=== PATIENT | female | born 1935 | race Caucasian/White ===

== ENCOUNTER 2018-08-23 09:36 | Observation (INO) | payer MEDICARE ==
[2018-08-23] MEDS ORDERED: Zofran 4 MG/2 ML VIAL IV PRN (12:39)
[2018-08-23] MEDS ORDERED: Sodium Chloride 0.9% 1000 ML 1,000 ML IV STA (12:39)
--- NOTE | 2018-08-23 12:43 | PCM.HP ---
History of Present Illness - Chief Complaint Chief Complaint: AMBER LEG PAIN, nausea, vomiting, abdominal pain History of Present Illness: is a 83 year old female.started having low back pain radiation to both lower legs started 3 days ago for which she went to ER and was diagnosed with sciatica and lumbosacral osteoarthritis. She was seen in my office as her pain was not getting better. She was started on anti inflammatory which also did not relieve her pain and gave her abdominal pain associated with nausea and vomiting that she could not keep anything down so she is admitted for further evaluation as observation. - Review of Systems Constitutional: No Fever, No Chills Eyes: No Symptoms Ears, Nose, & Throat: No Symptoms Respiratory: No Cough, No Short Of Breath Cardiac: No Chest Pain, No Edema, No Syncope Abdominal/Gastrointestinal: Abdominal Pain, Nausea, Vomiting, No Diarrhea Genitourinary Symptoms: No Dysuria Musculoskeletal: Back Pain, No Neck Pain Skin: No Rash Neurological: No Dizziness, No Focal Weakness, No Sensory Changes Psychological: No Symptoms Endocrine: No Symptoms Hematologic/Lymphatic: No Symptoms Immunological/Allergic: No Symptoms Medications & Allergies Home Medications: Home Medication List Amlodipine Besylate 10 mg [Norvasc 10 MG] 10 mg PO DAILY 08/23/18 [History Confirmed 08/23/18] Aspirin 2 tab PO DAILY 08/23/18 [History Confirmed 08/23/18] Atorvastatin Calcium 80 mg PO DAILY 08/23/18 [History Confirmed 08/23/18] Celecoxib 100 mg [celeBREX 100 MG] 100 mg PO BID 08/23/18 [History Confirmed 08/23/18] Clopidogrel Bisulfate 75 mg [PLAVIX 75 MG Tablet] 75 mg PO DAILY 08/23/18 [History Confirmed 08/23/18] Ezetimibe/Simvastatin [Ezetimibe-Simvastatin 10-10 mg] 1 each PO DAILY 08/23/18 [History Confirmed 08/23/18] Levothyroxine Sodium 75 Mcg [Synthroid 75 Mcg] 75 mcg PO DAILY 08/23/18 [ History Confirmed 08/23/18] Lisinopril [Zestril] 40 mg PO HS 08/23/18 [History Confirmed 08/23/18] Lorazepam 1 mg [Ativan 1 MG] 1 mg PO HS 08/23/18 [History Confirmed ] Metformin HCl 500 mg [Glucophage 500 MG] 500 mg PO DAILY 08/23/18 [ History Confirmed 08/23/18] Pantoprazole Sodium [Protonix] 40 mg PO DAILY 08/23/18 [History Confirmed ] Allergies/Adverse Reactions: Allergies Allergy/AdvReac Type Severity Reaction Status Date / Time Sulfa (Sulfonamide Allergy Verified 08/23/18 10:45 Antibiotics) - Past Medical History Past Medical History: Yes Neurological History: Peripheral Neuropathy, TIA ENT History: No Pertinent History Cardiac History: Congestive Heart Failure, Coronary Artery Disease, High Cholesterol, Hypertension Respiratory History: CHF, COPD, Sleep Apnea Endocrine Medical History: Diabetes Type II, Hypothyroidism Musculoskelatal History: Arthritis, Osteoarthritis GI Medical History: Gallbladder Disease, Hemorrhoids History: No Pertinent History Pyscho-Social History: No Pertinent History Reproductive Disorders: No Pertinent History - Female History Are you now?: No - Past Surgical History Past Surgical History: Yes Neuro Surgical History: No Pertinent History Cardiac History: Cardiac Catheterization, Cardiac Stent Respiratory Surgery: No Pertinent History GI Surgical History: Cholecystectomy Genitourinary Surgical Hx: No Pertinent History Musculskeletal Surgical Hx: Other Female Surgical History: Hysterectomy Other Surgical History: rotator cuff surgery; spinal surgery - Social History Smoking Status: Never smoker Exposure to second hand smoke: No Alcohol: None Drug Use: none - Physical Exam General Appearance: no apparent distress, alert Neurologic Exam: alert, oriented x 3, cooperative, normal mood/affect, nml cerebellar function, nml station & gait, sensation nml, No motor deficits Eye Exam: PERRL/EOMI, eyes nml inspection Ears, Nose, Throat Exam: normal ENT inspection, TMs normal, pharynx normal, moist mucous membranes Neck Exam: normal inspection, non-tender, supple, full range of motion Respiratory Exam: normal breath sounds, lungs clear, No respiratory distress Cardiovascular Exam: regular rate/rhythm, normal heart sounds, normal peripheral pulses Gastrointestinal/Abdomen Exam: soft, normal bowel sounds, No tenderness, No mass Back Exam: normal inspection, normal range of motion, No CVA tenderness, No vertebral tenderness Extremity Exam: normal inspection, normal range of motion, pelvis stable Skin Exam: normal color, warm, dry, No rash Lymphatic Exam: No adenopathy Assessment/Plan (1) Abdominal pain Current Visit: Yes Status: Acute Qualifiers: Abdominal location: generalized Qualified Code(s): R10.84 - Generalized abdominal pain Code(s): R10.9 - UNSPECIFIED ABDOMINAL PAIN (2) Bilateral leg pain Current Visit: Yes Status: Acute Code(s): M79.604 - PAIN IN RIGHT LEG; M79.605 - PAIN IN LEFT LEG
[2018-08-23 13:00] LABS: BASOPHIL % 0.5 % (0.0-0.4); Basophil (Absolute #) 0.03 (0-0.4); Eosinophil % 0.3 % (0.00-5.0); Eosinophil (Absolute #) 0.02 (0-0.5); Granulocyte Absolute (ANC) 3.97 (1.4-6.9); Granulocytes % 66.3 % (36.0-66.0); Hematocrit 37.2 % (35-47); Hemoglobin 12.3 gm/dl (12.0-16.0); Mean Corpuscular Hgb Concent. 33.1 g/dl (32-36); Mean Platelet Volume 9.4 fl (6-9.5); Monocyte (Absolute #) 0.77 (0.0-1.3); Monocytes % 12.9 % (0.0-12.0); Platelet Count 188 K/mm3 (150-450); Red Blood Count 4.09 M/mm3 (4.1-5.4); Red Cell Distribution Width 13.3 % (11.5-14.0)
[2018-08-23 13:02] LABS: A-aADO2 47; ABG HEMOGLOBIN 12.1; ABG POTASSIUM 3.6 (3.5-5.1); ARTERIAL BLD GAS O2 SATURATION 93.7 % (95-100); ARTERIAL BLOOD GAS BASE EXCESS 2.7 (-2.0-2.0); ARTERIAL BLOOD GAS FIO2 21 %; ARTERIAL BLOOD GAS PCO2 35 mmHg (35-45); ARTERIAL BLOOD GAS PO2 59 mmHg (75-100); ARTERIAL BLOOD GAS pH 7.48 (7.35-7.45); CARBOXYHEMOGLOBIN 2.4 % THgb (0.0-6.9); HCO3- 26.1 (22-28); HGB O2 SAT 90.3 g/dF (94-100); Methhemoglobin 1.2 % (1.4-1.5); paO2 pAO1 0.56
[2018-08-23 13:03] LABS: ABG SITE RIGHT RADIAL; ALLEN TEST OK? YES
[2018-08-23 13:14] LABS: ALKALINE PHOSPHATASE 64 U/L (38-126); AMYLASE 75 U/L (30-110); ANION GAP 13.1 MEQ/L (5-15); BLOOD UREA NITROGEN 20 mg/dL (7-17); CHLORIDE 101 mmol/L (98-107); Calcium 9.4 mg/dL (8.4-10.2); Carbon Dioxide 27 mmol/L (22-30); Creatinine 1 0.87 mg/dL (0.52-1.04); Glucose 135 mg/dL (74-106); Potassium 3.7 mmol/L (3.5-5.1); SGOT/AST 38 U/L (14-36); SGPT/ALT 23 U/L (0-35); SODIUM 138 mmol/L (137-145); Total Protein 6.7 g/dL (6.3-8.2)
[2018-08-23] MEDS: Sodium Chloride 0.9% 1000 ML 1,000 ML IV SCH ×2 (13:45→23:39)
[2018-08-23] MEDS: MORPHINE SULFATE 2 MG INJ IV PRN ×2 (14:26→21:31)
[2018-08-23] MEDS: celeBREX 100 MG PO SCH (21:32)
[2018-08-23] MEDS ORDERED: NON-FORMULARY ITEM (Lisinopril [Zestril] 40 MG) PO SCH (22:00)
[2018-08-23] MEDS ORDERED: Ativan 1 MG PO SCH (22:00)
[2018-08-23] MEDS ORDERED: Zestril 20 MG PO SCH (22:00)
[2018-08-24] MEDS ORDERED: Glucophage 500 MG PO SCH (08:00)
[2018-08-24] MEDS: Sodium Chloride 0.9% 1000 ML 1,000 ML IV SCH (09:58)
[2018-08-24] MEDS: celeBREX 100 MG PO SCH (09:59)
[2018-08-24] MEDS ORDERED: EZETIMIBE PO SCH (10:00)
[2018-08-24] MEDS ORDERED: PLAVIX 75 MG Tablet PO SCH (10:00)
[2018-08-24] MEDS ORDERED: NORVASC 5 MG PO SCH (10:00)
[2018-08-24] MEDS ORDERED: ASPIRIN PO SCH (10:00)
[2018-08-24] MEDS ORDERED: SYNTHROID 75 MCG PO SCH (10:00)
[2018-08-24] MEDS ORDERED: ECOTRIN 81 MG PO SCH (10:00)
[2018-08-24] MEDS ORDERED: ZOCOR 20MG PO SCH (10:00)
[2018-08-24] MEDS ORDERED: Protonix 40MG Tablet PO SCH (10:00)
[2018-08-24] MEDS ORDERED: NON-FORMULARY ITEM (Atorvastatin Calcium [Atorvastatin Calcium] 80 MG) PO SCH (10:00)
[2018-08-24] MEDS ORDERED: Zetia 10 MG PO SCH (10:00)
[2018-08-24] MEDS ORDERED: SIMVASTATIN PO SCH (10:00)
[2018-08-24] MEDS ORDERED: NON-FORMULARY ITEM (Amlodipine Besylate 10 Mg [Norvasc 10 Mg] 10 MG) PO SCH (10:00)
--- NOTE | 2018-08-24 12:20 | PCM.DS ---
Discharge Summary Date of Admission: 08/23/18 10:28 Admitting Physician: MARLENY TANG Primary Care Provider: MARLENY TANG Allergies Allergies Sulfa (Sulfonamide Antibiotics) Allergy (Verified 08/23/18 10:45) Hospital Summary - Hospital Course Hospital Course: Chief Complaint Diagnosis AMBER LEG PAIN, nausea, vomiting, abdominal pain Allergies Allergy/AdvReac Type Severity Reaction Status Date / Time Sulfa (Sulfonamide Allergy Verified 08/23/18 10:45 Antibiotics) Vital Signs (Last 24 hours) Temp Pulse Resp BP Pulse Ox 08/24/18 07:53 99.5 F 79 21 130/62 91 L 08/24/18 03:45 99.7 F 74 15 133/63 92 L 08/23/18 23:49 98.4 F 76 19 135/63 92 L 08/23/18 20:00 98.6 F 75 18 130/63 92 L 08/23/18 16:00 98.2 F 83 18 129/59 93 L Home Medications Medication Instructions Recorded Confirmed Last Taken Type Amlodipine Besylate 10 mg [Norvasc 10 mg PO DAILY 08/23/18 08/23/18 08/23/18 History 10 MG] Aspirin 2 tab PO DAILY 08/23/18 08/23/18 08/23/18 History Atorvastatin Calcium 80 mg PO DAILY 08/23/18 08/23/18 08/23/18 History Celecoxib 100 mg [celeBREX 100 100 mg PO BID 08/23/18 08/23/18 08/23/18 History MG] Clopidogrel Bisulfate 75 mg 75 mg PO DAILY 08/23/18 08/23/18 08/23/18 History [PLAVIX 75 MG Tablet] Ezetimibe/Simvastatin 1 each PO DAILY 08/23/18 08/23/18 08/23/18 History [Ezetimibe-Simvastatin 10-10 mg] Levothyroxine Sodium 75 Mcg 75 mcg PO DAILY 08/23/18 08/23/18 08/23/18 History [Synthroid 75 Mcg] Lisinopril [Zestril] 40 mg PO HS 08/23/18 08/23/18 08/22/18 History Lorazepam 1 mg [Ativan 1 MG] 1 mg PO HS 08/23/18 08/23/18 08/22/18 History Metformin HCl 500 mg 500 mg PO DAILY 08/23/18 08/23/18 08/23/18 History [Glucophage 500 MG] Pantoprazole Sodium [Protonix] 40 mg PO DAILY 08/23/18 08/23/18 08/23/18 History Current Medications Generic Name Dose Route Start Last Admin Trade Name Domingoq PRN Reason Stop Dose Admin Amlodipine Besylate 10 mg 08/24/18 10:00 08/24/18 09:59 Norvasc 5 Mg PO 09/23/18 09:59 10 mg DAILY AARON Administration Aspirin 162 mg 08/24/18 10:00 08/24/18 09:59 Ecotrin 81 Mg PO 09/23/18 09:59 162 mg DAILY AARON Administration Celecoxib 100 mg 08/23/18 22:00 08/24/18 09:59 Celebrex 100 Mg PO 09/22/18 21:59 100 mg BID AARON Administration Clopidogrel Bisulfate 75 mg 08/24/18 10:00 08/24/18 09:59 Plavix 75 Mg Tablet PO 09/23/18 09:59 75 mg DAILY AARON Administration Ezetimibe 10 mg 08/24/18 10:00 08/24/18 09:58 Zetia 10 Mg PO 09/23/18 09:59 10 mg DAILY AARON Administration Sodium Chloride 1,000 mls @ 100 mls/hr 08/23/18 12:45 08/24/18 09:58 Sodium Chloride 0.9% 1000 Ml IV 09/22/18 12:44 100 mls/hr .Q10H AARON Administration Levothyroxine Sodium 75 mcg 08/24/18 10:00 08/24/18 09:59 Synthroid 75 Mcg PO 09/23/18 09:59 75 mcg DAILY AARON Administration Lisinopril 40 mg 08/23/18 22:00 08/23/18 21:32 Zestril 20 Mg PO 09/22/18 21:59 40 mg HS AARON Administration Lorazepam 1 mg 08/23/18 22:00 08/23/18 21:32 Ativan 1 Mg PO 09/22/18 21:59 1 mg HS AARON Administration Metformin HCl 500 mg 08/24/18 08:00 08/24/18 09:59 Glucophage 500 Mg PO 09/23/18 07:59 500 mg BREAKFAST AARON Administration Morphine Sulfate 2 mg 08/23/18 12:41 08/23/18 21:31 Morphine Sulfate 2 Mg Inj IV 08/28/18 12:40 2 mg Q4H PRN PRN Administration PAIN Ondansetron HCl 4 mg 08/23/18 12:39 Zofran 4 Mg/2 Ml Vial IV 09/22/18 12:38 Q4H PRN PRN NAUSEA/VOMITING Pantoprazole Sodium 40 mg 08/24/18 10:00 08/24/18 09:59 Protonix 40mg Tablet PO 09/23/18 09:59 40 mg DAILY AARON Administration Simvastatin 80 mg 08/24/18 10:00 08/24/18 09:59 Zocor 20mg PO 09/23/18 09:59 80 mg DAILY AARON Administration Discontinued Medications Generic Name Dose Route Start Last Admin Trade Name Freq PRN Reason Stop Dose Admin Sodium Chloride 1,000 mls @ 999 mls/hr 08/23/18 12:39 08/23/18 12:46 Sodium Chloride 0.9% 1000 Ml IV 08/23/18 13:39 999 mls/hr .Q1H1M STA Administration Intake & Output (Last 24 hours) 08/22/18 08/23/18 08/24/18 08/25/18 11:59 11:59 11:59 11:59 Intake Total 3701 Balance 3701 Weight 75.3 kg Laboratory Results (Last 24 hours) 08/23/18 08/23/18 08/23/18 12:55 12:55 12:50 WBC RBC Hgb Hct MCV MCH MCHC RDW Plt Count MPV Gran % Eos # (Auto) Absolute Lymphs (auto) Absolute Monos (auto) Lymphocytes % Monocytes % Eosinophils % Basophils % Absolute Granulocytes Basophils # Puncture Site RIGHT RADIAL pCO2 35 pO2 59 L Base Excess 2.7 H O2 Saturation 90.3 L ABG pH 7.48 H ABG HCO3 26.1 ABG O2 Sat (Measured) 93.7 L Yefri Test YES A-a Gradient 47 a/A Ratio 0.56 Hemoglobin 12.1 Carboxyhemoglobin 2.4 Methemoglobin 1.2 L Temperature 37.0 POC O2 Flow Rate 21 Sodium Potassium 3.6 Chloride Carbon Dioxide Anion Gap BUN Creatinine Estimated GFR Glucose Lactic Acid 1.5 Calcium Total Bilirubin AST ALT Alkaline Phosphatase Troponin I < 0.012 Serum Total Protein Albumin Amylase 08/23/18 08/23/18 12:50 12:50 WBC 6.0 RBC 4.09 L Hgb 12.3 Hct 37.2 MCV 91.0 MCH 30.0 MCHC 33.1 RDW 13.3 Plt Count 188 MPV 9.4 Gran % 66.3 H Eos # (Auto) 0.02 Absolute Lymphs (auto) 1.20 Absolute Monos (auto) 0.77 Lymphocytes % 20.0 L Monocytes % 12.9 H Eosinophils % 0.3 Basophils % 0.5 Absolute Granulocytes 3.97 Basophils # 0.03 Puncture Site pCO2 pO2 Base Excess O2 Saturation ABG pH ABG HCO3 ABG O2 Sat (Measured) Yefri Test A-a Gradient a/A Ratio Hemoglobin Carboxyhemoglobin Methemoglobin Temperature POC O2 Flow Rate Sodium 138 Potassium 3.7 Chloride 101 Carbon Dioxide 27 Anion Gap 13.1 BUN 20 H Creatinine 0.87 Estimated GFR > 60.0 Glucose 135 H Lactic Acid Calcium 9.4 Total Bilirubin 0.70 AST 38 H ALT 23 Alkaline Phosphatase 64 Troponin I Serum Total Protein 6.7 Albumin 4.0 Amylase 75 Orders (Last 24 hours) Category Date Time Status Up Ad Leny TOLERATED Activity 08/23/18 12:40 Active Code Status Order ROUTINE Care 08/23/18 12:40 Active ABG [ARTERIAL BLOOD GASES] Routine Lab 08/23/18 12:55 Completed AMYLASE Stat Lab 08/23/18 12:50 Completed CBC W DIFF Stat Lab 08/23/18 12:50 Completed CMP Stat Lab 08/23/18 12:50 Completed Lactic Acid Stat Lab 08/23/18 12:55 Completed TROPONIN Stat Lab 08/23/18 12:50 Completed Amlodipine Besylate 5 mg [Norvasc 5 mg] Med 08/24/18 10:00 Active 10 mg PO DAILY Aspirin EC 81 mg [Ecotrin 81 mg] Med 08/24/18 10:00 Active 162 mg PO DAILY Celecoxib 100 mg [celeBREX 100 MG] Med 08/23/18 22:00 Active 100 mg PO BID Clopidogrel Bisulfate 75 mg [PLAVIX 75 MG Tablet] Med 08/24/18 10:00 Active 75 mg PO DAILY Ezetimibe 10 mg [Zetia 10 MG] Med 08/24/18 10:00 Active 10 mg PO DAILY Levothyroxine Sodium 75 Mcg [Synthroid 75 Mcg] Med 08/24/18 10:00 Active 75 mcg PO DAILY Lisinopril 20 mg [Zestril 20 MG] Med 08/23/18 22:00 Active 40 mg PO HS Lorazepam 1 mg [Ativan 1 MG] Med 08/23/18 22:00 Active 1 mg PO HS Metformin HCl 500 mg [Glucophage 500 MG] Med 08/24/18 08:00 Active 500 mg PO BREAKFAST Morphine Sulfate 2 mg Inj Med 08/23/18 12:41 Active 2 mg IV Q4H PRN PRN NaCl 0.9% 1000 ml [Sodium Chloride 0.9% 1000 ML] 1,000 Med 08/23/18 12:45 Active ml IV 100 mls/hr NaCl 0.9% 1000 ml [Sodium Chloride 0.9% 1000 ML] 1,000 Med 08/23/18 12:39 Discontinued ml IV 999 mls/hr Ondansetron HCl 4 mg/2 ml [Zofran 4 MG/2 ML VIAL] Med 08/23/18 12:39 Active 4 mg IV Q4H PRN PRN PANTOPRAZOLE 40 mg Tablet [Protonix 40MG Tablet] Med 08/24/18 10:00 Active 40 mg PO DAILY Simvastatin 20Mg [Zocor 20Mg] Med 08/24/18 10:00 Active 80 mg PO DAILY PT Eval & Treat (MD Order) ROUTINE PT 08/24/18 09:04 Active BiPap/CPAP ROUTINE RT 08/23/18 20:02 Active - Vitals & Intake/Output Vital Signs: Vital Signs Temperature 99.5 F 08/24/18 07:53 Pulse Rate 79 08/24/18 07:53 Respiratory Rate 21 08/24/18 07:53 Blood Pressure 130/62 08/24/18 07:53 O2 Sat by Pulse Oximetry 91 L 08/24/18 07:53 Intake & Output: Intake & Output 1008/23/18 08/24/18 08/25/18 11:59 11:59 11:59 11:59 Intake Total 3701 Balance 3701 Weight 75.3 kg - Lab Result Diagrams: 08/23/18 12:50 08/23/18 12:50 Lab Results-Last 24 Hrs: Lab Results-Last 24 Hours 08/23/18 08/23/18 08/23/18 Range/Units 12:50 12:50 12:50 WBC 6.0 (4.0-10.5) K/mm3 RBC 4.09 L (4.1-5.4) M/mm3 Hgb 12.3 (12.0-16.0) gm/dl Hct 37.2 (35-47) % MCV 91.0 (78-100) fl MCH 30.0 (26-32) pg MCHC 33.1 (32-36) g/dl RDW 13.3 (11.5-14.0) % Plt Count 188 (150-450) K/mm3 MPV 9.4 (6-9.5) fl Gran % 66.3 H (36.0-66.0) % Eos # (Auto) 0.02 (0-0.5) Absolute Lymphs (auto) 1.20 (1.0-4.6) Absolute Monos (auto) 0.77 (0.0-1.3) Lymphocytes % 20.0 L (24.0-44.0) % Monocytes % 12.9 H (0.0-12.0) % Eosinophils % 0.3 (0.00-5.0) % Basophils % 0.5 (0.0-0.4) % Absolute Granulocytes 3.97 (1.4-6.9) Basophils # 0.03 (0-0.4) Puncture Site pCO2 (35-45) mmHg pO2 (75-100) mmHg Base Excess (-2.0-2.0) O2 Saturation (94-100) g/dF ABG pH (7.35-7.45) ABG HCO3 (22-28) ABG O2 Sat (Measured) (95-100) % Yefri Test A-a Gradient a/A Ratio Hemoglobin Carboxyhemoglobin (0.0-6.9) % THgb Methemoglobin (1.4-1.5) % Temperature C POC O2 Flow Rate % Sodium 138 (137-145) mmol/L Potassium 3.7 (3.5-5.1) mmol/L Chloride 101 (98-107) mmol/L Carbon Dioxide 27 (22-30) mmol/L Anion Gap 13.1 (5-15) MEQ/L BUN 20 H (7-17) mg/dL Creatinine 0.87 (0.52-1.04) mg/dL Estimated GFR > 60.0 ML/MIN Glucose 135 H (74-106) mg/dL Lactic Acid (0.4-2.0) Calcium 9.4 (8.4-10.2) mg/dL Total Bilirubin 0.70 (0.2-1.3) mg/dL AST 38 H (14-36) U/L ALT 23 (0-35) U/L Alkaline Phosphatase 64 (38-126) U/L Troponin I < 0.012 (0.000-0.034) ng/mL Serum Total Protein 6.7 (6.3-8.2) g/dL Albumin 4.0 (3.5-5.0) g/dL Amylase 75 (30-110) U/L 08/23/18 08/23/18 Range/Units 12:55 12:55 WBC (4.0-10.5) K/mm3 RBC (4.1-5.4) M/mm3 Hgb (12.0-16.0) gm/dl Hct (35-47) % MCV (78-100) fl MCH (26-32) pg MCHC (32-36) g/dl RDW (11.5-14.0) % Plt Count (150-450) K/mm3 MPV (6-9.5) fl Gran % (36.0-66.0) % Eos # (Auto) (0-0.5) Absolute Lymphs (auto) (1.0-4.6) Absolute Monos (auto) (0.0-1.3) Lymphocytes % (24.0-44.0) % Monocytes % (0.0-12.0) % Eosinophils % (0.00-5.0) % Basophils % (0.0-0.4) % Absolute Granulocytes (1.4-6.9) Basophils # (0-0.4) Puncture Site RIGHT RADIAL pCO2 35 (35-45) mmHg pO2 59 L (75-100) mmHg Base Excess 2.7 H (-2.0-2.0) O2 Saturation 90.3 L (94-100) g/dF ABG pH 7.48 H (7.35-7.45) ABG HCO3 26.1 (22-28) ABG O2 Sat (Measured) 93.7 L (95-100) % Yefri Test YES A-a Gradient 47 a/A Ratio 0.56 Hemoglobin 12.1 Carboxyhemoglobin 2.4 (0.0-6.9) % THgb Methemoglobin 1.2 L (1.4-1.5) % Temperature 37.0 C POC O2 Flow Rate 21 % Sodium (137-145) mmol/L Potassium 3.6 (3.5-5.1) mmol/L Chloride (98-107) mmol/L Carbon Dioxide (22-30) mmol/L Anion Gap (5-15) MEQ/L BUN (7-17) mg/dL Creatinine (0.52-1.04) mg/dL Estimated GFR ML/MIN Glucose (74-106) mg/dL Lactic Acid 1.5 (0.4-2.0) Calcium (8.4-10.2) mg/dL Total Bilirubin (0.2-1.3) mg/dL AST (14-36) U/L ALT (0-35) U/L Alkaline Phosphatase (38-126) U/L Troponin I (0.000-0.034) ng/mL Serum Total Protein (6.3-8.2) g/dL Albumin (3.5-5.0) g/dL Amylase (30-110) U/L - Procedures and Test Procedures and Tests throughout Hospitalization: Therapy Orders & Screens 08/23/18 20:02 BiPap/CPAP ROUTINE Comment: CPAP 8 AT NIGHT Diagnosis: AMBER LEG PAIN, nausea, vomiting, abdominal pain 08/24/18 09:04 PT Eval & Treat ( Order) ROUTINE Reason for Eval:: amber leg pain Diagnosis: AMBER LEG PAIN, nausea, vomiting, abdominal pain Discharge Exam General Appearance: no apparent distress, alert Neurologic Exam: alert, oriented x 3, cooperative, normal mood/affect, nml cerebellar function, sensation nml, No motor deficits Skin Exam: normal color, warm, dry Eye Exam: PERRL, EOMI, eyes nml inspection Ears, Nose, Throat Exam: normal ENT inspection, pharynx normal, moist mucous membranes Neck Exam: normal inspection, non-tender, supple, full range of motion Respiratory Exam: normal breath sounds, lungs clear, No respiratory distress Cardiovascular Exam: regular rate/rhythm, normal heart sounds Gastrointestinal/Abdomen Exam: soft, No tenderness, No mass Extremity Exam: normal inspection, normal range of motion Back Exam: normal inspection, normal range of motion, No CVA tenderness, No vertebral tenderness Pelvic Exam: deferred Rectal Exam: deferred Final Diagnosis/Problem List - Final Discharge Diagnosis/Problem (1) Abdominal pain Current Visit: Yes Status: Resolved (2) Bilateral leg pain Current Visit: Yes Status: Acute (3) 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 Current Visit: Yes Status: Acute Priority: High Assessment & Plan: will do outpatient physical therapy - Discharge Discharge Date: 08/24/18 Disposition: Home, Self-Care Condition: Stable Prescriptions: No Action Lorazepam 1 mg [Ativan 1 MG] 1 mg PO HS Celecoxib 100 mg [celeBREX 100 MG] 100 mg PO BID Atorvastatin Calcium 80 mg PO DAILY Metformin HCl 500 mg [Glucophage 500 MG] 500 mg PO DAILY Ezetimibe/Simvastatin [Ezetimibe-Simvastatin 10-10 mg] 1 each PO DAILY Pantoprazole Sodium [Protonix] 40 mg PO DAILY Amlodipine Besylate 10 mg [Norvasc 10 MG] 10 mg PO DAILY Levothyroxine Sodium 75 Mcg [Synthroid 75 Mcg] 75 mcg PO DAILY Clopidogrel Bisulfate 75 mg [PLAVIX 75 MG Tablet] 75 mg PO DAILY Aspirin 2 tab PO DAILY Lisinopril [Zestril] 40 mg PO HS Follow up with: MARLENY TANG MD [Primary Care Provider] - 1 Week
[2018-08-24 13:26] VITALS: BP 137/60; PULSE 70; O2SAT 93
== END 2018-08-24 14:40 | disposition home or self-care (01) ==
LOC: MED SURG 10:28
PROVIDERS: ADMIT General Practice; ATTEND General Practice
DX: R10.9 Unspecified abdominal pain (principal); M79.605 Pain in left leg; M79.604 Pain in right leg; M47.817 Spondylosis without myelopathy or radiculopathy, lumbosacral region; E11.9 Type 2 diabetes mellitus without complications; Z79.4 Long term (current) use of insulin; I50.9 Heart failure, unspecified; I25.10 Atherosclerotic heart disease of native coronary artery without angina pectoris; E78.00 Pure hypercholesterolemia, unspecified; I10 Essential (primary) hypertension; J44.9 Chronic obstructive pulmonary disease, unspecified; E03.9 Hypothyroidism, unspecified; G47.30 Sleep apnea, unspecified; M19.90 Unspecified osteoarthritis, unspecified site; Z79.899 Other long term (current) drug therapy
CPT/HCPCS: 36415; 36600; 80053; 82150; 82375; 82803; 83605; 84484; 85025; 94660; G0378; J2270; A9270-GY

== ENCOUNTER 2018-11-20 09:30 | Day surgery (SDC) | payer MEDICARE ==
--- NOTE | 2018-11-20 07:57 | HP ---
DATE OF SURGERY: 12/21/2018 HISTORY OF PRESENT ILLNESS: The patient is an 83 year-old with cyst left breast and chest area a couple of weeks. It had decreased in size and then swelled up. She is concerned about recurrent infection and desires definitive excision. She will need cardiac clearance. PAST MEDICAL HISTORY: Diabetes, hypothyroidism, hypertension, reflux, hypercholesterolemia. History of transient ischemic attack, history of pneumonia in the past. Hyperlipidemia. Lumbar radiculopathy in the past. Anxiety. PAST SURGICAL HISTORY: Right shoulder surgery in the past. She had stent in the past and on clopidogrel. She had colonoscopy. She had steroid injections in her back in the past. Back surgery, right shoulder surgery, cholecystectomy, carotid surgery, cardiac stents, cardiac acid test. MEDICATIONS: Aspirin, clopidogrel, levothyroxine for some hypothyroidism, amlodipine, pantoprazole, Metformin, ezetimibe, atorvastatin, celecoxib, isosorbide mononitrate, lorazepam, lisinopril. ALLERGIES: SULFA. FAMILY HISTORY: Negative in regards to this problem. SOCIAL HISTORY: Former smoker. REVIEW OF SYSTEMS: Twelve systems reviewed per admission assessment. No chest pain or palpitations other systems negative or noncontributory as above and per preadmission questionnaire. PHYSICAL EXAMINATION: GENERAL: No acute distress. HEENT: Sclerae nonicteric. NECK: No JVD. CHEST: Equal excursion, nonlabored breathing. Breast area on the left indurated area consistent with ruptured cyst site otherwise no other palpable masses. CVS: Regular rate and rhythm. ABDOMEN: Soft, nontender. EXTREMITIES: No significant edema. NEURO: Alert, oriented, moving extremities symmetrically. No gross motor deficits noted. IMPRESSION: Ruptured cyst site over left breast and chest area. I feel the patient will benefit from excisional biopsy. Risks and benefits explained in detail including but not limited to bleeding or infection, risk of wound dehiscence possibly requiring packing or if there is enough infection at the time of procedure may require packing or packing to be placed. General risk of aches or pains. What we excise likely will not recur but she could get a similar cyst adjacent to or elsewhere on her body. She understands and agrees to the planned procedure, will proceed with excisional biopsy of ruptured cyst site left breast as an outpatient.
[~2018-11-20 09:30] MED LIST: Lactated Ringers 1,000 ML IV ONE; Lactated Ringers 1,000 ML IV SCH; Sensorcaine 0.25% 10 ML ONE
[2018-11-20] MEDS ORDERED: DIPRIVAN 200 MG/20 ML IV ONE (09:31)
[2018-11-20] MEDS ORDERED: SUBLIMAZE 100 MCG/2 ML IV ONE (09:31)
[2018-11-20] MEDS ORDERED: Cleocin Phosphate IV 600 MG/4 ML ONE (12:40)
[2018-11-20 15:05] VITALS: BP 130/58; PULSE 63; O2SAT 95
--- NOTE | 2018-11-20 15:19 | OP ---
SURGERY DATE/TIME: 11/20/2018 1231 PREOPERATIVE DIAGNOSIS: Ruptured cyst site left breast area. POSTOPERATIVE DIAGNOSIS: Ruptured cyst site left breast area. PROCEDURE: Excisional biopsy ruptured cyst site approximately 4 cm with margins with intermediate closure. SURGEON: Dr. Asa Dempsey. ANESTHESIA: General. ESTIMATED BLOOD LOSS: Minimal. INDICATIONS: As noted above. Risks and benefits explained in detail and not limited to and consent obtained. DESCRIPTION OF PROCEDURE AND FINDINGS: The patient is taken to the operating room. Site had been confirmed and marked in the preoperative holding area. Taken to the operating room. General anesthesia induced. The breast is prepped and draped in usual sterile fashion. After official time out and no disagreement with planned procedure, group of rupture cyst site oriented more transversely. A transverse elliptical spindle-shaped excision pattern around the normal appearing skin accomplished dissecting down to normal appearing subcutaneous tissue beneath. It resulted in about a 4 cm specimen with margins. It is passed off for pathology. It appeared to be clean enough in the subcu area to warrant attempt at primary closure. It was irrigated out. Good hemostasis noted. It was then closed with interrupted 3-0 Vicryl in deep and superficial subcu in interrupted fashion. Skin closed with running 4-0 Vicryl running subcuticular fashion and some interrupted 3-0 Prolene used to reinforce the area given the location of the area with the weight of her breast wanting to pull the incision down. Steri-Strips and sterile dressing applied. The patient tolerated the procedure well. There were no immediate complications. 0.25% Marcaine local injected along the area. The patient tolerated the procedure well. There were no immediate complications. Findings discussed with the family out in the waiting area.
== END 2018-11-20 14:55 | disposition home or self-care (01) ==
LOC: SDC 09:30
PROVIDERS: ATTEND Surgery
DX: N60.02 Solitary cyst of left breast (principal); I10 Essential (primary) hypertension; E11.9 Type 2 diabetes mellitus without complications; Z79.899 Other long term (current) drug therapy
CPT/HCPCS: 88305; 99100; J2704; J3010

== ENCOUNTER 2019-05-07 08:42 | Day surgery (SDC) | payer MEDICARE ==
[~2019-05-07 08:42] MED LIST changes: -Lactated Ringers 1,000 ML IV ONE; -Sensorcaine 0.25% 10 ML ONE
[2019-05-07] MEDS ORDERED: Lactated Ringers 1,000 ML IV ONE ×2 (08:58→11:39)
[2019-05-07] MEDS ORDERED: DIPRIVAN 200 MG/20 ML IV ONE (10:59)
[2019-05-07 12:12] VITALS: O2SAT 98
[2019-05-07 12:37] VITALS: BP 160/62; PULSE 62
--- NOTE | 2019-05-07 14:47 | OP ---
PROCEDURE DATE/TIME: 05/07/2019 1101 PREOPERATIVE DIAGNOSES: 1) Gastroesophageal reflux disease. 2) History of polyps. POSTOPERATIVE DIAGNOSES: 1) Hemorrhoids. 2) Colonic polyps. 3) Mild gastritis. 4) Mild gastroesophageal reflux disease. 5) Mild diverticulosis. PROCEDURES: 1) EGD with biopsy. 2) Colonoscopy with hot snare polypectomy (transverse colon) and hot forceps polypectomy (transverse colon, ascending colon and rectosigmoid polyp). PROCEDURE PERFORMED BY: Reva Riley M.D. ANESTHESIA: MAC. ESTIMATED BLOOD LOSS: Minimal. COMPLICATIONS: None. SPECIMENS: 1) Antral biopsy. 2) Distal esophagus biopsy. 3) Transverse colon polyp x2. 4) Ascending colon polyp. 5) Rectosigmoid polyp. HISTORY: This is a patient who presents for EGD and colonoscopy. Risks, benefits, alternatives, consent, H&P all reviewed as well as confirmed. DESCRIPTION OF PROCEDURE: She was brought back to the endoscopy suite. Laid in the left lateral decubitus position. A complete time out was performed. The scope was gently introduced into the mouth, oropharynx down into the esophagus, stomach and duodenum. The duodenum was normal. In the stomach there is mild gastritis. Antral biopsy is taken to rule out Helicobacter pylori. Site hemostatic. On retroflex view there is not a significant hiatal hernia. The scope was then carefully withdrawn. The distal esophagus inspected. She does have mild gastroesophageal reflux disease changes. No signs of Jones's disease. I did take a biopsy to rule out any underlying microscopic Jones's disease but this does not look like Jones's on gross exam. These sites were all hemostatic. The remainder of the esophagus was normal. Scope completely removed. The patient was then repositioned for colonoscopy. First, a rectal exam was done. She does have moderate external hemorrhoidal disease. Scope was then inserted gently advanced to the level of the cecum. Appendiceal orifice and ileocecal valve identified and verified. These were normal. Scope is then carefully withdrawn. We did take a circumferential view. There was some liquid stool throughout the colon that was suction irrigated. There was one moderate sized piece of solid stool but we were able to flush this to allow a satisfactory view. In the colon there were four polyps. There was one in the ascending colon, one in the rectosigmoid region and two in the transverse colon. The ascending and rectosigmoid polyps were taken with hot forceps in their entirety and sent to pathology. Sites are hemostatic. In the transverse colon one polyp was slightly larger and taken with hot snare in its entirety and sent to pathology. The adjacent smaller transverse colon polyp was taken with hot forceps in entirety. All were sent to pathology. All sites hemostatic. Outside of this there was some mild diverticulosis but no other findings in the remainder of the colon. The scope was able to be completely withdrawn. The patient tolerated the procedure very well. There were no immediate complications. She is going to follow up with me as an outpatient. She needs to have another colonoscopy in approximately three years due to the finding of multiple polyps and EGD on as needed basis. She is going to stay on her proton pump inhibitor medication.
== END 2019-05-07 12:52 | disposition home or self-care (01) ==
LOC: SDC 08:42
PROVIDERS: ATTEND Surgery
DX: K21.9 Gastro-esophageal reflux disease without esophagitis (principal); K63.5 Polyp of colon; D12.3 Benign neoplasm of transverse colon; K29.70 Gastritis, unspecified, without bleeding; K64.4 Residual hemorrhoidal skin tags; Z86.010 Personal history of colon polyps; K57.30 Diverticulosis of large intestine without perforation or abscess without bleeding; E11.9 Type 2 diabetes mellitus without complications; I10 Essential (primary) hypertension; I25.10 Atherosclerotic heart disease of native coronary artery without angina pectoris; E03.9 Hypothyroidism, unspecified
CPT/HCPCS: 82962; 99100; J2704

== ENCOUNTER 2022-03-25 10:30 | Day surgery (SDC) | payer MEDICARE ==
--- NOTE | 2022-03-19 08:51 | HP ---
DATE OF SURGERY: 03/25/2022 HISTORY OF PRESENT ILLNESS: The patient presents for follow up of colon polyps. The patient was scoped approximately in 2019 and had a few polyps. Complains of hemorrhoids. She desires to have hemorrhoids removed during the colonoscopy. PAST MEDICAL HISTORY: Coronary artery disease, hyperlipidemia, diabetes, reflux, hypertension, gastroesophageal reflux disease, arthritis, osteoarthritis. PAST SURGICAL HISTORY: Cholecystectomy. Rotator cuff. Back surgery. Stents. Hysterectomy. ALLERGIES: SULFA. MEDICATIONS: Aspirin, Plavix, Metformin, Celebrex, amlodipine, pantoprazole, levothyroxine, lisinopril, Ativan, Tylenol. FAMILY HISTORY: None reported. SOCIAL HISTORY: None reported. REVIEW OF SYSTEMS: CONSTITUTIONAL: Denies fever or chills. CHEST: Denies shortness of breath. CVS: Denies chest pain. ABDOMEN: Denies abdominal pain, nausea, vomiting, diarrhea, constipation or rectal bleeding. PHYSICAL EXAMINATION: GENERAL: No acute distress. CHEST: Nonlabored. No shortness of breath. CVS: Regular rate and rhythm. ABDOMEN: Soft. IMPRESSION: History of colon polyps and hemorrhoids. PLAN: Colonoscopy and hemorrhoidectomy with Dr. Stevie Riley. As dictated by Aranza Hammond NP.
[~2022-03-25 10:30] MED LIST changes: +EXPAREL 133 MG/10 ML VIAL IJ ONE; +MEFOXIN 2 GM PREMIX** 2 GM/50 ML ML IV ONE
[2022-03-25] MEDS ORDERED: ANUSOL-HC 2.5% CREAM 30 GM TOP ONE (10:31)
[2022-03-25] MEDS ORDERED: MEFOXIN 2 GM PREMIX** 2 GM/50 ML ML IV SCH (11:00)
[2022-03-25] MEDS ORDERED: Zemuron 100 MG/10 ML ONE (13:12)
[2022-03-25] MEDS ORDERED: Xylocaine-Mpf 2% 5 Ml Vial ONE (13:12)
[2022-03-25] MEDS ORDERED: BRIDION 200MG/2ML IV ONE (13:12)
[2022-03-25] MEDS ORDERED: SUBLIMAZE 100 MCG/2 ML ONE (13:12)
[2022-03-25] MEDS ORDERED: Decadron 4 MG INJ ONE (13:12)
[2022-03-25] MEDS ORDERED: Zofran 4 MG/2 ML VIAL ONE (13:12)
[2022-03-25] MEDS ORDERED: DIPRIVAN 200 MG/20 ML IV ONE ×2 (13:12→13:28)
[2022-03-25] MEDS ORDERED: TORAdol 30 mg Injection ONE (13:12)
[2022-03-25 15:01] VITALS: BP 135/55; PULSE 81; O2SAT 95
--- NOTE | 2022-03-25 15:21 | OP ---
SURGERY DATE/TIME: 03/25/2022 1307 PREOPERATIVE DIAGNOSIS: Symptomatic hemorrhoids, some bleeding per rectum, history of polyps. POSTOPERATIVE DIAGNOSES: 1) Three ascending colon polyps 1 cm each. 2) Mild diverticulosis. 3) Two severe hemorrhoids. PROCEDURES: 1) Colonoscopy complete to cecum with hot polypectomy x3. 2) External hemorrhoidectomy x1 open/close technique. 3) Internal hemorrhoidectomy x1. SURGEON: Stevie Riley M.D. ANESTHESIA: General. ESTIMATED BLOOD LOSS: 5 cc. COMPLICATIONS: None. CONDITION: Stable. INDICATION: The patient has symptomatic hemorrhoids refractory to medical care and she has an ongoing history of polyps. DESCRIPTION OF PROCEDURE: She is taken to the surgical suite. Lithotomy. A very large external Lester pile was present at 12:00 and there was a very substantial internal hemorrhoid at 7:00. The scope was performed. There were three - 1 cm polyps in the right colon that were taken and submitted in one container. Hot polypectomy x3. The base of the cecum, appendiceal orifice was normal. Three polyps in the ascending. There was mild diverticulosis in the sigmoid that was above two stated hemorrhoids. At this time the hemorrhoids were removed openly. The external was clamped and an over and under suture was performed. The internal was clamped, transected and closed with 2-0 chromic. Operative sites were satisfactory although she did have a petite anus. Long lasting Marcaine was placed perianal.
== END 2022-03-25 13:10 | disposition home or self-care (01) ==
LOC: SDC 10:30
PROVIDERS: ATTEND Surgery
DX: Z09 Encounter for follow-up examination after completed treatment for conditions other than malignant neoplasm (principal); D12.2 Benign neoplasm of ascending colon; K57.30 Diverticulosis of large intestine without perforation or abscess without bleeding; Z86.010 Personal history of colon polyps; K62.5 Hemorrhage of anus and rectum; K64.9 Unspecified hemorrhoids; E11.9 Type 2 diabetes mellitus without complications
CPT/HCPCS: 82947; 99100; J0694; J1100; J1885; J2405; J2704; J3010; A9270-GY

== ENCOUNTER 2023-06-17 11:51 | Emergency (ER) | payer MEDICARE ==
[2023-06-17 12:03] VITALS: TEMP 97
[2023-06-17] MEDS ORDERED: BABY ASPIRIN 81 MG CHEW PO ONE (12:05)
--- NOTE | 2023-06-17 12:05 | ERPHSYRPT ---
- History of Present Illness Time Seen by Provider: 06/17/23 12:05 Historian: patient Exam Limitations: no limitations Patient Subjective Stated Complaint: pt here for chest pain since yesterday,pain is a pressure to left side pf chest, Triage Nursing Assessment: pt alert, walked in, sob with excertion which she states is normal for her, resp labored, skin w/d/p, no edema noted . chest clear Physician History: This is an 87-year-old white female patient of Dr. Tang who presents with central to left anterior chest pressure that began yesterday evening and has persisted this morning. Patient has a history of coronary artery disease and has a cardiac stent in place. She is on daily Plavix. Her fighting vehicle infantryman is Dr. Cox. Patient has a history of hyperlipidemia, hypothyroidism, hypertension, gastroesophageal reflux disease and diabetes. She has associated mild shortness of breath with exertion. She denies fever. She denies cough. She has no history of nausea vomiting or diarrhea. She has no abdominal pain. Timing/Duration: yesterday Activities at Onset: none Quality: pressure Location: central, other (Left anterior) Severity of Pain-Max: mild Severity of Pain-Current: mild Modifying Factors: Improves With: nothing Associated Symptoms: shortness of breath (Mild) Prior Chest Pain/Cardiac Workup: cardiac cath, echocardiography Nitro Today/Relief: no nitro taken today Aspirin Treatment Today: no aspirin today Allergies/Adverse Reactions: Sulfa (Sulfonamide Antibiotics) Allergy (Verified 06/17/23 11:53) unknown Home Medications: Amlodipine Besylate 10 mg [Norvasc 10 MG] 10 mg PO DAILY 08/23/18 [History] Atorvastatin Calcium 80 mg PO DAILY 08/23/18 [History] Levothyroxine Sodium 75 Mcg [Synthroid 75 Mcg] 75 mcg PO DAILY 08/23/18 [History] Metformin HCl 500 mg [Glucophage 500 MG] 500 mg PO DAILY 08/23/18 [History] Pantoprazole Sodium [Protonix] 40 mg PO DAILY 08/23/18 [History] lisinopriL [Zestril] 40 mg PO HS 08/23/18 [History] Lorazepam [Ativan] 1 mg PO DAILY 03/18/22 [History] Nitroglycerin 0.4 mg (Ed) [Nitrostat 0.4 MG (ED)] 0.4 mg SL Q5MIN PRN MR X 3 PRN 03/18/22 [History] Spironolactone 25 mg [Aldactone 25 MG] 25 mg PO DAILY 03/18/22 [History] Ezetimibe 10 mg [Zetia 10 MG] 10 mg PO DAILY 03/25/22 [History] Clopidogrel Bisulfate [PLAVIX Tablet] 75 mg PO DAILY 06/17/23 [History] Hx Pneumococcal Vaccination/Date Given: Yes Immunizations Up to Date: Yes Travel Risk - International Travel Have you traveled outside of the country in past 3 weeks: No - Coronavirus Screening Are you exhibiting any of the following symptoms?: No Close contact with a COVID-19 positive Pt in past 14-21 Days: No - Vaccine Status Have you recieved a Covid-19 vaccination: Yes Industrial Electrical Technician: [employer] - Vaccination Dates Date of 2cond Vaccination (if applicable): 2020 - Review of Systems Constitutional: No Symptoms Eyes: No Symptoms Ears, Nose, & Throat: No Symptoms Respiratory: Dyspnea on Exertion (OLGUIN) Cardiac: Chest Pain (Mild described as a pressure central to left anterior) Abdominal/Gastrointestinal: No Symptoms ( chest) Genitourinary Symptoms: No Symptoms Musculoskeletal: No Symptoms Skin: No Symptoms Neurological: No Symptoms Psychological: No Symptoms Endocrine: No Symptoms Hematologic/Lymphatic: No Symptoms Immunological/Allergic: No Symptoms All Other Systems: Reviewed and Negative - Past Medical History Pertinent Past Medical History: Yes Neurological History: No Pertinent History ENT History: No Pertinent History Cardiac History: Coronary Artery Disease, Hypertension, Other Respiratory History: Sleep Apnea Endocrine Medical History: Diabetes Type II, Other Musculoskeletal History: Osteoporosis GI Medical History: Gallbladder Disease, Hemorrhoids History: No Pertinent History Psycho-Social History: No Pertinent History Female Reproductive Disorders: No Pertinent History Other Medical History: thyroid issues,blockages - Past Surgical History Past Surgical History: Yes Neuro Surgical History: No Pertinent History Cardiac: Cardiac Catheterization, Cardiac Stent Respiratory: No Pertinent History Gastrointestinal: Cholecystectomy Genitourinary: No Pertinent History Musculoskeletal: Other Female Surgical History: Hysterectomy Other Surgical History: rotator R cuff surgery; spinal surgery, right carotid endarterectomy. stents in at least 1 leg - Social History Smoking Status: Former smoker How long have you smoked: 40 years Exposure to second hand smoke: No Drug Use: none Patient Lives Alone: Yes - Nursing Vital Signs Nursing Vital Signs: Initial Vital Signs Temperature 97.0 F 06/17/23 11:57 Pulse Rate 82 06/17/23 11:57 Respiratory Rate 18 06/17/23 11:57 Blood Pressure 119/62 06/17/23 11:57 O2 Sat by Pulse Oximetry 94 L 06/17/23 11:57 Pain Scale Pain Intensity 0 - Physical Exam General Appearance: no apparent distress, alert Eye Exam: PERRL/EOMI, eyes nml inspection Ears, Nose, Throat Exam: normal ENT inspection Neck Exam: normal inspection, non-tender, supple, full range of motion Respiratory Exam: normal breath sounds, chest tenderness, lungs clear (Mild pressure), airway intact, No respiratory distress Cardiovascular Exam: regular rate/rhythm, normal heart sounds, normal peripheral pulses Gastrointestinal/Abdomen Exam: soft, normal bowel sounds, No tenderness Pelvic Exam: not done Rectal Exam: not done Back Exam: normal inspection, normal range of motion, No CVA tenderness, No vertebral tenderness Extremity Exam: normal inspection, normal range of motion, pelvis stable Neurologic Exam: alert, oriented x 3, cooperative, booster assembler II-XII nml as tested, normal mood/affect, nml cerebellar function, nml station & gait, sensation nml Skin Exam: normal color, warm, dry Lymphatic Exam: No adenopathy SpO2 Interpretation: normal SpO2: 94 O2 Delivery: Room Air - Course Nursing assessment & vital signs reviewed: Yes EKG Interpreted by Me: RATE (84), Sinus Rhythm, NORMAL AXIS, NORMAL INTERVALS, Left Bundle Branch Block, NORMAL ST-T, Other (No acute ischemic changes on estefany morelos's twelve-lead EKG.) Ordered Tests: Active Orders 24 hr Category Date Time Status EKG-ER Only STAT Care 06/17/23 12:05 Active IV Insertion STAT Care 06/17/23 12:05 Active Pulse Oximetry (ED) STAT Care 06/17/23 12:05 Active CHEST 1 VIEW (PORTABLE) Stat Exams 06/17/23 12:06 Completed CHEST WITH CONTRAST [CT] Stat Exams 06/17/23 15:19 Completed BMP Stat Lab 06/17/23 14:15 Completed CBC W DIFF Stat Lab 06/17/23 12:05 Completed CMP Stat Lab 06/17/23 12:05 Completed D-DIMER QUANTITATIVE Stat Lab 06/17/23 12:05 Completed NT PRO BNPII Stat Lab 06/17/23 12:05 Completed TROPONIN Q4H Lab 06/17/23 12:05 Completed TROPONIN Q4H Lab 06/17/23 16:50 Completed TROPONIN Q4H Lab 06/17/23 20:15 Ordered Medication Summary Discontinued Medications Generic Name Dose Route Start Last Admin Trade Name [place] PRN Reason Stop Dose Admin Aspirin 324 mg 06/17/23 12:05 06/17/23 12:14 Aspirin 81 Mg Tab.Chew PO 06/17/23 12:06 324 mg STAT ONE Administration Aspirin Confirm 06/17/23 12:13 Aspirin 81 Mg Tab.Chew Administered 06/17/23 12:14 Dose 324 mg .ROUTE .STK-MED ONE Sodium Chloride 500 mls @ 500 mls/hr 06/17/23 12:53 06/17/23 16:53 Sodium Chloride 0.9% 500 Ml IV 06/17/23 13:52 Infused .Q1H ONE Infusion Sodium Chloride Confirm 06/17/23 12:56 Sodium Chloride 0.9% 500 Ml Administered 06/17/23 12:57 Dose 500 mls @ ud IV .STK-MED ONE Lab/Rad Data: Laboratory Result Diagrams 06/17/23 12:05 06/17/23 14:15 Laboratory Results 06/17/23 06/17/23 06/17/23 Range/Units 16:50 14:15 12:05 WBC (4.0-10.5) x10^3/uL RBC (4.1-5.4) x10^6/uL Hgb (12.0-16.0) g/dL Hct (35-47) % MCV (78-100) fL MCH (26-32) pg MCHC (32-36) g/dL RDW (11.5-14.0) % Plt Count (150-450) x10^3/uL MPV (7.5-11.0) fL Gran % (36.0-66.0) % Immature Gran % (Auto) (0.00-0.4) % Nucleat RBC Rel Count (0.00-0.1) % Eos # (Auto) (0-0.5) x10^3/uL Immature Gran # (Auto) (0.00-0.03) x10^3u/L Absolute Lymphs (auto) (1.0-4.6) x10^3/uL Absolute Monos (auto) (0.0-1.3) x10^3/uL Absolute Nucleated RBC (0.00-0.01) x10^3u/L Lymphocytes % (24.0-44.0) % Monocytes % (0.0-12.0) % Eosinophils % (0.00-5.0) % Basophils % (0.0-0.4) % Absolute Granulocytes (1.4-6.9) x10^3/uL Basophils # (0-0.4) x10^3/uL D-Dimer (0.0-0.50) mg/L Sodium 140 (137-145) mmol/L Potassium 4.6 (3.5-5.1) mmol/L Chloride 106 (98-107) mmol/L Carbon Dioxide 24 (22-30) mmol/L Anion Gap 14.3 (5-15) MEQ/L BUN 18 H (7-17) mg/dL Creatinine 1.25 H (0.52-1.04) mg/dL Estimated GFR 43.3 ML/MIN Glucose 129 H (74-106) mg/dL Calcium 8.7 (8.4-10.2) mg/dL Total Bilirubin (0.2-1.3) mg/dL AST (14-36) U/L ALT (0-35) U/L Alkaline Phosphatase (38-126) U/L Troponin I < 0.012 < 0.012 (0.000-0.034) ng/mL NT-Pro-B Natriuret Pep 73.2 (<300) pg/mL Serum Total Protein (6.3-8.2) g/dL Albumin (3.5-5.0) g/dL 06/17/23 06/17/23 06/17/23 Range/Units 12:05 12:05 12:05 WBC 9.5 (4.0-10.5) x10^3/uL RBC 3.56 L (4.1-5.4) x10^6/uL Hgb 10.0 L (12.0-16.0) g/dL Hct 32.0 L (35-47) % MCV 89.9 (78-100) fL MCH 28.1 (26-32) pg MCHC 31.3 L (32-36) g/dL RDW 14.0 (11.5-14.0) % Plt Count 252 (150-450) x10^3/uL MPV 10.1 (7.5-11.0) fL Gran % 67.1 H (36.0-66.0) % Immature Gran % (Auto) 0.3 (0.00-0.4) % Nucleat RBC Rel Count 0.0 (0.00-0.1) % Eos # (Auto) 0.13 (0-0.5) x10^3/uL Immature Gran # (Auto) 0.03 (0.00-0.03) x10^3u/L Absolute Lymphs (auto) 2.23 (1.0-4.6) x10^3/uL Absolute Monos (auto) 0.69 (0.0-1.3) x10^3/uL Absolute Nucleated RBC 0.00 (0.00-0.01) x10^3u/L Lymphocytes % 23.6 L (24.0-44.0) % Monocytes % 7.3 (0.0-12.0) % Eosinophils % 1.4 (0.00-5.0) % Basophils % 0.3 (0.0-0.4) % Absolute Granulocytes 6.34 (1.4-6.9) x10^3/uL Basophils # 0.03 (0-0.4) x10^3/uL D-Dimer 1.70 H* (0.0-0.50) mg/L Sodium 139 (137-145) mmol/L Potassium 4.5 (3.5-5.1) mmol/L Chloride 106 (98-107) mmol/L Carbon Dioxide 23 (22-30) mmol/L Anion Gap 13.7 (5-15) MEQ/L BUN 18 H (7-17) mg/dL Creatinine 1.23 H (0.52-1.04) mg/dL Estimated GFR 44.1 ML/MIN Glucose 212 H (74-106) mg/dL Calcium 9.1 (8.4-10.2) mg/dL Total Bilirubin 0.60 (0.2-1.3) mg/dL AST 33 (14-36) U/L ALT 20 (0-35) U/L Alkaline Phosphatase 88 (38-126) U/L Troponin I (0.000-0.034) ng/mL NT-Pro-B Natriuret Pep (<300) pg/mL Serum Total Protein 6.8 (6.3-8.2) g/dL Albumin 3.9 (3.5-5.0) g/dL - Progress Progress: improved, re-examined Air Movement: good Progress Note: 06/17/23 12:54 This patient's medical issue is 1 of at least moderate complexity. The level of complexity in the work-up performed is based on review of the patient's past medical history, review of the patient's medication list, review patient drug allergy list, history of present illness and physical findings on examination. The work-up includes CBC, CMP, BNP, troponin level, D-dimer level, twelve-lead EKG and chest x-ray. The results that have returned so far shows a normal troponin level and an elevated D-dimer level. The BNP is pending. At this point, the plan will be to repeat a troponin level and twelve-lead EKG 3 hours from the initial lab draw. We will also provide the patient with a bolus of normal saline solution 500 mL. We may increase that to 1000 mL of normal saline if the BNP returns normal. We will then perform a CTA of the chest. 06/17/23 16:47 The chest x-ray was interpreted by the radiologist. There is a new mild left base atelectasis/infiltrate present. The CT scan of the chest with contrast shows no obvious central pulmonary embolus. However there is suboptimal contrast opacification. The presence of an infiltrate on the left base may account for the patient's s ymptoms. We will treat the patient with Rocephin 1 g intravenously followed by remotely sending Z-Mynor antibiotic to the patient's pharmacy. We will also wait for the 3-hour troponin which was just drawn now. If this is normal we will discharge the patient to home. Medical Desision Making - Diagnostic Testing Diagnostic test were ordered, analyzed, and reviewed by me: Yes Radiological Interpretation: Reviewed by me, Teleradiologist Report - Risk of complications The pt has a mod risk of morbidity or mortality based on: Need for prescription drug management - Departure Departure Disposition: Home Clinical Impression: Chest pain, Shortness of breath, Left lower lobe pulmonary infiltrate Condition: Stable Critical Care Time: No Referrals: MARLENY TANG MD [Primary Care Provider] - Follow up/PCP as directed Additional Instructions: Take your antibiotics and other medication as prescribed. Follow-up with your primary care provider and fighting vehicle infantryman for further evaluation management. Prescriptions: Azithromycin 250 mg [Zithromax 250 MG TABLET] 250 mg PO ZPACK #6 tablet
[2023-06-17] MEDS ORDERED: BABY ASPIRIN 81 MG CHEW ONE (12:13)
[2023-06-17 12:16] LABS: Absolute Neutrophil Ct (ANC) 6.34 x10^3/uL (1.4-6.9); BASOPHIL % 0.3 % (0.0-0.4); Basophil (Absolute #) 0.03 x10^3/uL (0-0.4); Eosinophil % 1.4 % (0.00-5.0); Eosinophil (Absolute #) 0.13 x10^3/uL (0-0.5); IMMATURE GRAN # 0.03 x10^3u/L (0.00-0.03); IMMATURE GRAN % 0.3 % (0.00-0.4); Lymphocyte (Absolute #) 2.23 x10^3/uL (1.0-4.6); Lymphocytes % 23.6 % (24.0-44.0); Mean Cell Volume 89.9 fL (78-100); Mean Corpuscular Hemoglobin 28.1 pg (26-32); Mean Corpuscular Hgb Concent. 31.3 g/dL (32-36); Mean Platelet Volume 10.1 fL (7.5-11.0); Monocyte (Absolute #) 0.69 x10^3/uL (0.0-1.3); Monocytes % 7.3 % (0.0-12.0); Neutrophil % 67.1 % (36.0-66.0); Platelet Count 252 x10^3/uL (150-450); Red Blood Count 3.56 x10^6/uL (4.1-5.4); White Blood Count 9.5 x10^3/uL (4.0-10.5)
--- NOTE | 2023-06-17 12:30 | XRAY ---
Indication: Chest pain. Comparison: December 14, 2007 Portable chest demonstrates new mild left base infiltrate/atelectasis. Remaining heart and lungs unremarkable again with incidental small left hilar/left apical calcific granulomas. Bony thorax intact again with osteopenia and mild degenerative changes.
[2023-06-17 12:31] LABS: ALBUMIN 3.9 g/dL (3.5-5.0); ANION GAP 13.7 MEQ/L (5-15); BILIRUBIN,TOTAL 0.6 mg/dL (0.2-1.3); Calcium 9.1 mg/dL (8.4-10.2); Creatinine 1 1.23 mg/dL (0.52-1.04); EST GLOMERULAR FILTRATION RATE 44.1 ML/MIN; Potassium 4.5 mmol/L (3.5-5.1); Total Protein 6.8 g/dL (6.3-8.2)
[2023-06-17 12:42] LABS: TROPONIN < 0.012 ng/mL (0.000-0.034)
[2023-06-17] MEDS ORDERED: Sodium Chloride 0.9% 500 ML 500 ML IV ONE ×2 (12:53→12:56)
[2023-06-17 13:09] LABS: NT PRO BNPII 73.2 pg/mL (<300)
[2023-06-17 14:38] LABS: ANION GAP 14.3 MEQ/L (5-15); Calcium 8.7 mg/dL (8.4-10.2); Creatinine 1 1.25 mg/dL (0.52-1.04); EST GLOMERULAR FILTRATION RATE 43.3 ML/MIN; Potassium 4.6 mmol/L (3.5-5.1)
--- NOTE | 2023-06-17 16:32 | XRAY ---
Indication: Short of breath and chest pain. Elevated d-dimer. Multiple contiguous axial images obtained through the chest using 140 cc Isovue 370 contrast and PE protocol. Comparison: None Suboptimal opacification of the pulmonary arteries limits evaluation for pulmonary embolus. No obvious central pulmonary embolus. Heart not enlarged with diffuse scattered coronary calcifications. Aorta is mildly arteriosclerotic without aneurysm/dissection. 3.5 x 6.1 cm subcarinal soft tissue mass favoring lymphadenopathy with central hypoattenuation may represent necrosis. Smaller 2.6 x 2.0 cm distal paratracheal adenopathy, 1.3 x 1.8 cm left hilar, adenopathy, and 1 cm distal paraesophageal lymph node. Partial differential includes primary/metastatic malignancies, lymphadenitis, and leukemia/lymphoma. Small hiatal hernia. Lungs demonstrates moderate diffuse pulmonary emphysema and mild bilateral dependent atelectasis. Bilateral mid to lower lung demonstrates scattered subsegmental atelectasis/scarring greatest right lower lobe. Tiny left upper lobe calcified granuloma. No suspicious pulmonary mass, infiltrate, or effusion. Bony thorax intact with osteopenia and mild degenerative changes throughout the spine. No supraclavicular/axillary lymphadenopathy. Limited upper abdomen including adrenal glands are unremarkable. Incidental cholecystectomy clips.. Impression: 1. Pulmonary embolus evaluation limited due to suboptimal contrast opacification. No obvious central pulmonary embolus. 2. Mediastinal/left hilar lymphadenopathy. Partial differential offered above. 3. Chronic findings including pulmonary emphysema, atelectasis/scarring, hiatal hernia, chronic bony findings, and old granulomatous disease.
[2023-06-17 17:09] VITALS: BP 156/61; PULSE 92; RESP 18
[2023-06-17 17:40] VITALS: O2SAT 94
== END 2023-06-17 17:52 | disposition home or self-care (01) ==
LOC: ED 11:51
DX: R07.9 Chest pain, unspecified (principal); R06.02 Shortness of breath; R91.8 Other nonspecific abnormal finding of lung field; E78.5 Hyperlipidemia, unspecified; I10 Essential (primary) hypertension; E11.9 Type 2 diabetes mellitus without complications; Z79.02 Long term (current) use of antithrombotics/antiplatelets; Z79.84 Long term (current) use of oral hypoglycemic drugs; Z79.899 Other long term (current) drug therapy
CPT/HCPCS: 36000; 36415; 71045; 71260; 80048; 80053; 83880; 84484; 85025; 85379; 93005; 94760; 96360; 99284; A9270-GY

== ENCOUNTER 2024-02-27 11:09 | Emergency (ER) | payer MEDICARE ==
[2024-02-27 11:31] VITALS: TEMP 97.6
--- NOTE | 2024-02-27 12:05 | ERPHSYRPT ---
- History of Present Illness Time Seen by Provider: 02/27/24 11:55 Historian: patient Exam Limitations: no limitations Patient Subjective Stated Complaint: Pt states "I have pain in my belly. I am taking mirilax and stool softners for 2 weeks and only getting little bits out." Triage Nursing Assessment: Pt presented alert and oriented X 3, skin pwd. pt ambulates with an upright steady gait, able to speak in clear full sentences. pt resting comfortably on the bed. Physician History: This is an 88-year-old white female patient who presents to the emergency department with least 2 weeks of abdominal pain and associated intermittent constipation. Patient states that she has sharp epigastric and suprapubic pain in the last 2 weeks. She has had the constipation despite using MiraLAX and stool softeners. Her primary care physician, Dr. Tang, provided the patient with proton pump inhibitor. None of those medications have helped much. Patient denies chest pain. Patient denies shortness of breath. She has not had any vomiting or diarrhea symptoms. Patient has had a cholecystectomy in the past. It has been a while since she has had a colonoscopy. However, she does state that they have removed polyps in the past. It has been a while since she last underwent a colonoscopy. Patient has a history of coronary artery disease and has had coronary artery stent placed and is taking Plavix. She also has a history of hypertension and type 2 diabetes. Timing/Duration: week(s) (2) Activities at Onset: none Quality: sharpness Abdominal Pain Onset Location: epigastric (Midline), suprapubic (Midline) Pain Radiation: no radiation Severity of Pain-Max: moderate Severity of Pain-Current: moderate Modifying Factors: Improves With: nothing Associated Symptoms: other (Constipation), No chest pain, No diarrhea, No nausea, No shortness of breath, No vomiting, No weakness Previous symptoms: no prior history, recently treated Allergies/Adverse Reactions: Sulfa (Sulfonamide Antibiotics) Allergy (Verified 06/17/23 11:53) unknown Home Medications: Amlodipine Besylate 10 mg [Norvasc 10 MG] 10 mg PO DAILY 08/23/18 [History] Atorvastatin Calcium 80 mg PO DAILY 08/23/18 [History] Levothyroxine Sodium 75 Mcg [Synthroid 75 Mcg] 75 mcg PO DAILY 08/23/18 [History] Metformin HCl 500 mg [Glucophage 500 MG] 500 mg PO DAILY 08/23/18 [History] Pantoprazole Sodium [Protonix] 40 mg PO DAILY 08/23/18 [History] lisinopriL [Zestril] 40 mg PO HS 08/23/18 [History] Lorazepam [Ativan] 1 mg PO DAILY 03/18/22 [History] Nitroglycerin 0.4 mg (Ed) [Nitrostat 0.4 MG (ED)] 0.4 mg SL Q5MIN PRN MR X 3 PRN 03/18/22 [History] Spironolactone 25 mg [Aldactone 25 MG] 25 mg PO DAILY 03/18/22 [History] Ezetimibe 10 mg [Zetia 10 MG] 10 mg PO DAILY 03/25/22 [History] Clopidogrel Bisulfate [PLAVIX Tablet] 75 mg PO DAILY 06/17/23 [History] Lubiprostone 1 cap PO BID 02/27/24 [History] Hx Tetanus, Diphtheria Vaccination/Date Given: No Hx Influenza Vaccination/Date Given: Yes Hx Pneumococcal Vaccination/Date Given: Yes Immunizations Up to Date: Yes Travel Risk - International Travel Have you traveled outside of the country in past 3 weeks: No - Emerging Infectious Disease Are you exhibiting symptoms associated with any current EIDs: Yes Symptoms: Abdominal Pain - Review of Systems Constitutional: No Symptoms Eyes: No Symptoms Ears, Nose, & Throat: No Symptoms Respiratory: No Symptoms Cardiac: No Symptoms Abdominal/Gastrointestinal: Abdominal Pain, Constipation Genitourinary Symptoms: No Symptoms Musculoskeletal: No Symptoms Skin: No Symptoms Neurological: No Symptoms Psychological: No Symptoms Endocrine: No Symptoms Hematologic/Lymphatic: No Symptoms Immunological/Allergic: No Symptoms All Other Systems: Reviewed and Negative - Past Medical History Pertinent Past Medical History: Yes Neurological History: No Pertinent History ENT History: No Pertinent History Cardiac History: Coronary Artery Disease, Hypertension, Other Respiratory History: Sleep Apnea Endocrine Medical History: Diabetes Type II, Other Musculoskeletal History: Osteoporosis GI Medical History: Gallbladder Disease, Hemorrhoids History: No Pertinent History Psycho-Social History: No Pertinent History Female Reproductive Disorders: No Pertinent History Other Medical History: thyroid issues,blockages - Past Surgical History Past Surgical History: Yes Neuro Surgical History: No Pertinent History Cardiac: Cardiac Catheterization, Cardiac Stent Respiratory: No Pertinent History Gastrointestinal: Cholecystectomy Genitourinary: No Pertinent History Musculoskeletal: Other Female Surgical History: Hysterectomy Other Surgical History: rotator R cuff surgery; spinal surgery, right carotid endarterectomy. stents in at least 1 leg - Social History Smoking Status: Former smoker How long have you smoked: 40 years Exposure to second hand smoke: No Drug Use: none Patient Lives Alone: Yes - Nursing Vital Signs Nursing Vital Signs: Initial Vital Signs Temperature 97.6 F 02/27/24 11:24 Pulse Rate 83 02/27/24 11:24 Respiratory Rate 20 02/27/24 11:24 Blood Pressure 146/54 02/27/24 11:24 O2 Sat by Pulse Oximetry 97 02/27/24 11:24 Pain Scale Pain Intensity 2 - Physical Exam General Appearance: no apparent distress, alert, anxiety, obese Eye Exam: PERRL/EOMI, eyes nml inspection Ears, Nose, Throat Exam: normal ENT inspection, moist mucous membranes Neck Exam: normal inspection, non-tender, supple, full range of motion Respiratory Exam: normal breath sounds, lungs clear, airway intact, No chest tenderness, No respiratory distress Cardiovascular Exam: regular rate/rhythm, normal heart sounds, normal peripheral pulses Gastrointestinal/Abdomen Exam: soft, normal bowel sounds, tenderness (Midline epigastrium and suprapubic region), guarding (To palpation in the midline epigastrium and suprapubic region), No rebound Pelvic Exam: not done Rectal Exam: not done Back Exam: normal inspection, normal range of motion, No CVA tenderness, No vertebral tenderness Extremity Exam: normal inspection, normal range of motion, pelvis stable Neurologic Exam: alert, oriented x 3, cooperative, steel turner II-XII nml as tested, normal mood/affect, nml cerebellar function, nml station & gait, sensation nml Skin Exam: normal color, warm, dry Lymphatic Exam: No adenopathy SpO2 Interpretation: normal SpO2: 97 O2 Delivery: Room Air - Course Nursing assessment & vital signs reviewed: Yes EKG Interpreted by Me: RATE (76), NORMAL AXIS, Left Bundle Branch Block, Other (No acute ischemia) Ordered Tests: Active Orders 24 hr Category Date Time Status EKG-ER Only STAT Care 02/27/24 12:05 Active IV Insertion STAT Care 02/27/24 12:05 Active ABDOMEN AND PELVIS W/0 CONTRAS [CT] Stat Exams 02/27/24 12:05 Completed AMYLASE Stat Lab 02/27/24 12:15 Completed CBC W DIFF Stat Lab 02/27/24 12:15 Completed CMP Stat Lab 02/27/24 12:15 Completed CULTURE,URINE Stat Lab 02/27/24 12:43 Received LIPASE Stat Lab 02/27/24 12:15 Completed TROPONIN Q4H Lab 02/27/24 12:15 Completed TROPONIN Q4H Lab 02/27/24 16:15 Ordered TROPONIN Q4H Lab 02/27/24 20:15 Ordered UA W/RFX UR CULTURE Stat Lab 02/27/24 12:43 Completed Medication Summary Generic Name Dose Route Start Last Admin Trade Name Freq PRN Reason Stop Dose Admin Sodium Chloride 1,000 mls @ 100 mls/hr 02/27/24 12:15 02/27/24 12:30 Sodium Chloride 0.9% 1000 Ml IV 03/28/24 12:14 100 mls/hr .Q10H AARON Administration Lab/Rad Data: Laboratory Result Diagrams 02/27/24 12:15 02/27/24 12:15 Laboratory Results 02/27/24 02/27/24 02/27/24 Range/Units 12:43 12:15 12:15 WBC (4.0-10.5) x10^3/uL RBC (4.1-5.4) x10^6/uL Hgb (12.0-16.0) g/dL Hct (35-47) % MCV (78-100) fL MCH (26-32) pg MCHC (32-36) g/dL RDW (11.5-14.0) % Plt Count (150-450) x10^3/uL MPV (7.5-11.0) fL Gran % (36.0-66.0) % Immature Gran % (Auto) (0.00-0.4) % Nucleat RBC Rel Count (0.00-0.1) % Eos # (Auto) (0-0.5) x10^3/uL Immature Gran # (Auto) (0.00-0.03) x10^3u/L Absolute Lymphs (auto) (1.0-4.6) x10^3/uL Absolute Monos (auto) (0.0-1.3) x10^3/uL Absolute Nucleated RBC (0.00-0.01) x10^3u/L Lymphocytes % (24.0-44.0) % Monocytes % (0.0-12.0) % Eosinophils % (0.00-5.0) % Basophils % (0.0-0.4) % Absolute Granulocytes (1.4-6.9) x10^3/uL Basophils # (0-0.4) x10^3/uL Sodium 135 (135-145) mmol/L Potassium 3.8 (3.5-5.1) mmol/L Chloride 106 (98-107) mmol/L Carbon Dioxide 22 (22-30) mmol/L Anion Gap 10.1 (5-15) MEQ/L BUN 17 (7-17) mg/dL Creatinine 1.44 H (0.52-1.04) mg/dL Estimated GFR 35.4 ML/MIN Glucose 216 H (74-106) mg/dL Calcium 9.1 (8.4-10.2) mg/dL Total Bilirubin 0.60 (0.2-1.3) mg/dL AST 31 (14-36) U/L ALT 14 (0-35) U/L Alkaline Phosphatase 80 (38-126) U/L Troponin I < 0.012 (0.000-0.033) ng/mL Serum Total Protein 7.0 (6.3-8.2) g/dL Albumin 3.6 (3.5-5.0) g/dL Amylase 79 (30-110) U/L Lipase 309 H (23-300) U/L Urine Color Yellow (Yellow) Urine Appearance Clear (Clear) Urine pH 6.5 (4.6-8.0) Ur Specific [place] 1.015 (1.005-1.030) Urine Protein Negative (Negative) Urine Glucose (UA) Negative (Negative) mg/dL Urine Ketones Negative (Negative) Urine Blood Negative (Negative) Urine Nitrite Negative (Negative) Urine Bilirubin Negative (Negative) Urine Urobilinogen 1.0 A (0.2) mg/dL Ur Leukocyte Esterase Trace A (Negative) U Hyaline Cast (Auto) NONE SEEN (0-2) /LPF Urine Microscopic RBC 0-2 (0-5) /HPF Urine Microscopic WBC 3-5 (0-5) /HPF Ur Epithelial Cells Few (None Seen) /HPF Urine Bacteria None Seen (None Seen) /HPF Urine Culture Reflexed YES (NO) 02/27/24 Range/Units 12:15 WBC 7.5 (4.0-10.5) x10^3/uL RBC 3.48 L (4.1-5.4) x10^6/uL Hgb 9.3 L (12.0-16.0) g/dL Hct 29.7 L (35-47) % MCV 85.3 (78-100) fL MCH 26.7 (26-32) pg MCHC 31.3 L (32-36) g/dL RDW 14.9 H (11.5-14.0) % Plt Count 315 (150-450) x10^3/uL MPV 10.0 (7.5-11.0) fL Gran % 55.5 (36.0-66.0) % Immature Gran % (Auto) 0.3 (0.00-0.4) % Nucleat RBC Rel Count 0.0 (0.00-0.1) % Eos # (Auto) 0.13 (0-0.5) x10^3/uL Immature Gran # (Auto) 0.02 (0.00-0.03) x10^3u/L Absolute Lymphs (auto) 2.56 (1.0-4.6) x10^3/uL Absolute Monos (auto) 0.59 (0.0-1.3) x10^3/uL Absolute Nucleated RBC 0.00 (0.00-0.01) x10^3u/L Lymphocytes % 34.2 (24.0-44.0) % Monocytes % 7.9 (0.0-12.0) % Eosinophils % 1.7 (0.00-5.0) % Basophils % 0.4 (0.0-0.4) % Absolute Granulocytes 4.16 (1.4-6.9) x10^3/uL Basophils # 0.03 (0-0.4) x10^3/uL Sodium (135-145) mmol/L Potassium (3.5-5.1) mmol/L Chloride (98-107) mmol/L Carbon Dioxide (22-30) mmol/L Anion Gap (5-15) MEQ/L BUN (7-17) mg/dL Creatinine (0.52-1.04) mg/dL Estimated GFR ML/MIN Glucose (74-106) mg/dL Calcium (8.4-10.2) mg/dL Total Bilirubin (0.2-1.3) mg/dL AST (14-36) U/L ALT (0-35) U/L Alkaline Phosphatase (38-126) U/L Troponin I (0.000-0.033) ng/mL Serum Total Protein (6.3-8.2) g/dL Albumin (3.5-5.0) g/dL Amylase (30-110) U/L Lipase (23-300) U/L Urine Color (Yellow) Urine Appearance (Clear) Urine pH (4.6-8.0) Ur Specific [place] (1.005-1.030) Urine Protein (Negative) Urine Glucose (UA) (Negative) mg/dL Urine Ketones (Negative) Urine Blood (Negative) Urine Nitrite (Negative) Urine Bilirubin (Negative) Urine Urobilinogen (0.2) mg/dL Ur Leukocyte Esterase (Negative) U Hyaline Cast (Auto) (0-2) /LPF Urine Microscopic RBC (0-5) /HPF Urine Microscopic WBC (0-5) /HPF Ur Epithelial Cells (None Seen) /HPF Urine Bacteria (None Seen) /HPF Urine Culture Reflexed (NO) - Progress Progress: improved, pain not gone completely, re-examined Progress Note: 02/27/24 12:46 My medical decision making and the assignment of moderate complexity to this patient's medical issue today is based on review of the patient's past medical history, review of the patient's medication list, review the patient drug allergy list, history present illness and physical findings on examination. The workup in this patient includes placement of intravenous line, infusion of low rate normal saline solution, twelve-lead EKG, troponin level, amylase, lipase, urinalysis, CT scan of the abdomen pelvis without contrast. Differential diagnosis includes constipation, bowel obstruction, pancreatitis, diverticulitis 02/27/24 13:28 I interpreted the patient's laboratory data results. The patient has chronic anemia. A year ago her hemoglobin is 9.6. Today is 9.3. She will follow-up with her primary care physician to discuss these findings. In addition, she has a normal amylase level and very slightly elevated lipase level. I do not feel as though she has pancreatitis clinically or by history and we will observe this and have the patient avoid fatty greasy spicy foods. She does have trace leukocyte esterase in the urine specimen obtained. 02/27/24 13:[address] scan of the abdomen pelvis without contrast was interpreted by the radiologist and I reviewed the impression. The impression shows mesenteric root, left mid mesenteric and periaortic lymphadenopathy concerning for primary versus metastatic malignancy. There is a tiny amount of free fluid that is present that may be related. I discussed these findings with the patient and her daughter. I obtained a follow-up appointment for the patient with her primary care p angelianicho tomorrow, 02/28/2024, at 1:45 PM at her PCPs [place] office. Counseled pt/family regarding: lab results, diagnosis, need for follow-up, rad results Medical Desision Making - Independent Historian Additional History obtained from: Child, Family - Diagnostic Testing Diagnostic test were ordered, analyzed, and reviewed by me: Yes Radiological Interpretation: Reviewed by me, Teleradiologist Report - Risk of complications Low Risk: Low risk of morbidity from additional dx testing or treatment - Departure Departure Disposition: Home Clinical Impression: Abdominal pain, Constipation, Intra-abdominal lymphadenopathy, Chronic anemia Condition: Stable Critical Care Time: No Referrals: MARLENY TANG MD [Primary Care Provider] - Follow up/PCP as directed Additional Instructions: Drink plenty of fluids. May use MiraLAX and milk of magnesia as discussed. After the use of these medications, wait an hour and use a fleets enema rectally. Follow-up with Dr. Tang in his [place] office at 1:45 PM, tomorrow, 02/28/2024. Continue your other medications as prescribed.
[2024-02-27 12:18] LABS: Absolute Neutrophil Ct (ANC) 4.16 x10^3/uL (1.4-6.9); BASOPHIL % 0.4 % (0.0-0.4); Basophil (Absolute #) 0.03 x10^3/uL (0-0.4); Eosinophil % 1.7 % (0.00-5.0); Eosinophil (Absolute #) 0.13 x10^3/uL (0-0.5); Hematocrit 29.7 % (35-47); Hemoglobin 9.3 g/dL (12.0-16.0); IMMATURE GRAN # 0.02 x10^3u/L (0.00-0.03); IMMATURE GRAN % 0.3 % (0.00-0.4); Lymphocyte (Absolute #) 2.56 x10^3/uL (1.0-4.6); Lymphocytes % 34.2 % (24.0-44.0); Mean Cell Volume 85.3 fL (78-100); Mean Corpuscular Hemoglobin 26.7 pg (26-32); Mean Corpuscular Hgb Concent. 31.3 g/dL (32-36); Monocyte (Absolute #) 0.59 x10^3/uL (0.0-1.3); Monocytes % 7.9 % (0.0-12.0); Neutrophil % 55.5 % (36.0-66.0); Platelet Count 315 x10^3/uL (150-450); Red Blood Count 3.48 x10^6/uL (4.1-5.4); Red Cell Distribution Width 14.9 % (11.5-14.0); White Blood Count 7.5 x10^3/uL (4.0-10.5)
[2024-02-27 12:24] LABS: ALBUMIN 3.6 g/dL (3.5-5.0); ANION GAP 10.1 MEQ/L (5-15); BILIRUBIN,TOTAL 0.6 mg/dL (0.2-1.3); Calcium 9.1 mg/dL (8.4-10.2); Creatinine 1 1.44 mg/dL (0.52-1.04); EST GLOMERULAR FILTRATION RATE 35.4 ML/MIN; Potassium 3.8 mmol/L (3.5-5.1)
[2024-02-27] MEDS ORDERED: Sodium Chloride 0.9% 1000 ML 1,000 ML ONE (12:28)
[2024-02-27] MEDS: Sodium Chloride 0.9% 1000 ML 1,000 ML IV SCH (12:30)
[2024-02-27 12:52] LABS: Appearance Clear (Clear); Bacteria None Seen /HPF (None Seen); Bilirubin Negative (Negative); Blood Negative (Negative); Epithelial Cells Few /HPF (None Seen); Glucose, Urine Negative (Negative); Hyaline Casts NONE SEEN /LPF (0-2); Ketones Negative (Negative); Leukocyte Esterase Trace (Negative); Nitrite Negative (Negative); Ph 6.5 (4.6-8.0); Protein,Urine Dip Negative (Negative); RBC 0-2 /HPF (0-5); Specific Gravity 1.015 (1.005-1.030)
[2024-02-27 13:01] LABS: ADD URINE CULTURE? YES (NO)
--- NOTE | 2024-02-27 13:03 | XRAY ---
Indication: Abdominal pain. Constipation. Multiple contiguous axial images obtained through the abdomen and pelvis without contrast. Comparison: None Lung bases demonstrate mild dependent atelectasis and mild posterior right lower lobe subsegmental atelectasis/scarring. No infiltrate or effusion. Heart not enlarged with scattered coronary calcifications. Small hiatal hernia. Several abdominal images are slightly degraded by respiration artifact. Noncontrasted stomach and bowel loops appear nonobstructed with normal appendix. Minimal sigmoid diverticulosis without diverticulitis. A few tiny hepatic/splenic calcified granulomas. Previous cholecystectomy and hysterectomy. Prominent mesenteric root and periaortic lymph nodes. Largest mesenteric root node measures 2.8 x 1.9 cm. Largest periaortic node measures 2.6 x 1.9 cm. Also prominent left mid abdomen mesenteric nodes, largest 2.1 x 1.2 cm with mesenteric stranding. Above lymphadenopathy is concerning for primary malignancy such as lymphoma. Cannot completely exclude metastatic malignancy. Tiny nonspecific pelvic free fluid. No walled off fluid collection or free air. Remaining liver, pancreas, spleen, adrenal glands, kidneys, ureters, and bladder are unremarkable for noncontrast exam. Moderate scattered arteriosclerotic calcifications without AAA. Osseous structures intact with osteopenia, minimal dextroscoliosis centered at L2, mild/moderate degenerative changes throughout spine, and mild degenerative changes both hips. Impression: 1. Respiration artifact. 2. Mesenteric root, left mid mesenteric, and periaortic lymphadenopathy concerning for primary versus metastatic malignancy. Tiny pelvic free fluid may be related. 3. Chronic findings including hiatal hernia, sigmoid diverticulosis, arteriosclerotic disease, chronic bony findings, and old granulomatous disease.
[2024-02-27 13:12] VITALS: BP 116/54; PULSE 72; RESP 17
[2024-02-27 13:33] VITALS: O2SAT 97
== END 2024-02-27 13:52 | disposition home or self-care (01) ==
LOC: ED 11:09
DX: K59.00 Constipation, unspecified (principal); R59.0 Localized enlarged lymph nodes; D64.9 Anemia, unspecified; R10.13 Epigastric pain; R10.2 Pelvic and perineal pain; I10 Essential (primary) hypertension; E11.9 Type 2 diabetes mellitus without complications; Z79.84 Long term (current) use of oral hypoglycemic drugs; Z79.02 Long term (current) use of antithrombotics/antiplatelets; Z79.899 Other long term (current) drug therapy
CPT/HCPCS: 36000; 36415; 74176; 80053; 81001; 82150; 83690; 84484; 85025; 87086; 93005; 99284

== ENCOUNTER 2024-06-14 16:39 | Observation (INO) | payer MEDICARE ==
--- NOTE | 2024-06-14 17:25 | ERPHSYRPT ---
- History of Present Illness Time Seen by Provider: 06/14/24 16:42 Historian: patient, EMS Exam Limitations: no limitations Patient Subjective Stated Complaint: C/O abdominal pain today Triage Nursing Assessment: Patient arrived by ambulance. She is alert and oriented. S/S of pain present. She is pale. Labored breathing. Physician History: 88 years old female with history of coronary artery disease status post stentin g, hypertension, diabetes mellitus, chronic abdominal pain, questionable history of abdominal/GI cancer per patient with a recent colonoscopy done at [facility] presented in the ER with increasing pain all over her abdomen with nausea and vomiting since morning. Patient reports 8/10 intensity sharp pain, no significant relieving factors, aggravated with palpation and movements. Does have history of off-and-on constipation last bowel movement was yesterday. She does have to take stool softeners. No fever or chills reported. Allergies/Adverse Reactions: Sulfa (Sulfonamide Antibiotics) Allergy (Verified 06/15/24 10:08) unknown Home Medications: Atorvastatin Calcium 80 mg PO DAILY 08/23/18 [History] Levothyroxine Sodium 75 Mcg [Synthroid 75 Mcg] 75 mcg PO DAILY 08/23/18 [History] Pantoprazole Sodium [Protonix] 40 mg PO DAILY 08/23/18 [History] Lorazepam [Ativan] 1 mg PO DAILY 03/18/22 [History] Spironolactone 25 mg [Aldactone 25 MG] 25 mg PO DAILY 03/18/22 [History] Ezetimibe 10 mg [Zetia 10 MG] 10 mg PO DAILY 03/25/22 [History] Clopidogrel Bisulfate [PLAVIX Tablet] 75 mg PO DAILY 06/17/23 [History] Aspirin EC 81 mg [Ecotrin 81 mg] 81 mg PO DAILY 06/14/24 [History] Amlodipine Besylate 10 mg PO UD 06/15/24 [History] Cyanocobalamin (Vitamin B-12) [B-12] 3,000 mcg SL UD 06/15/24 [History] Vit 28/Iron Fum/Folic [Theranatal Core Nutrition Tab] 1 each PO UD 06/15/24 [History] lisinopriL [Lisinopril] 40 mg PO UD 06/15/24 [History] Hx Tetanus, Diphtheria Vaccination/Date Given: Yes Hx Influenza Vaccination/Date Given: Yes Hx Pneumococcal Vaccination/Date Given: Yes Immunizations Up to Date: Yes Travel Risk - International Travel Have you traveled outside of the country in past 3 weeks: No - Emerging Infectious Disease Are you exhibiting symptoms associated with any current EIDs: Yes Symptoms: Abdominal Pain - Review of Systems Constitutional: No Symptoms Ears, Nose, & Throat: No Symptoms Respiratory: No Symptoms Cardiac: No Symptoms Abdominal/Gastrointestinal: Abdominal Pain, Nausea, Vomiting Genitourinary Symptoms: No Symptoms Musculoskeletal: Arthralgias Skin: No Symptoms Neurological: No Symptoms Hematologic/Lymphatic: No Symptoms Immunological/Allergic: No Symptoms - Past Medical History Pertinent Past Medical History: Yes Neurological History: No Pertinent History ENT History: No Pertinent History Cardiac History: Coronary Artery Disease, Hypertension, Other Respiratory History: Lung Cancer, Sleep Apnea Endocrine Medical History: Diabetes Type II, Other Musculoskeletal History: Osteoporosis GI Medical History: Gallbladder Disease, Hemorrhoids History: No Pertinent History Psycho-Social History: No Pertinent History Female Reproductive Disorders: No Pertinent History Other Medical History: thyroid issues,blockages. Lung CA with mets to lymph nodes: MD practices out of [facility] [place] [place] - Past Surgical History Past Surgical History: Yes Neuro Surgical History: No Pertinent History Cardiac: Cardiac Catheterization, Cardiac Stent Respiratory: No Pertinent History Gastrointestinal: Cholecystectomy Genitourinary: No Pertinent History Musculoskeletal: Other Female Surgical History: Hysterectomy Other Surgical History: rotator R cuff surgery; spinal surgery, right carotid endarterectomy. stents in at least 1 leg - Social History Smoking Status: Former smoker How long have you smoked: 40 years Exposure to second hand smoke: No Drug Use: none Patient Lives Alone: Yes - Social Determinants of Health Will the patient participate in the screening: Yes Do you worry about a steady place to live?: No Do you have any problems with any of the following?: No known problems In the past 12 months,have you had to go without utilities?: No Transportation Issues: No Has anyone in your support network made you feel unsafe?: No Have you or anyone in your house had to go without enough: No - Nursing Vital Signs Nursing Vital Signs: Initial Vital Signs Temperature 97.7 F 06/14/24 16:46 Pulse Rate 110 H 06/14/24 16:46 Respiratory Rate 26 H 06/14/24 16:46 Blood Pressure 129/85 06/14/24 16:46 O2 Sat by Pulse Oximetry 94 L 06/14/24 16:46 Pain Scale Pain Intensity 5 - Physical Exam General Appearance: no apparent distress, alert Ears, Nose, Throat Exam: normal ENT inspection Neck Exam: normal inspection, full range of motion Respiratory Exam: normal breath sounds, lungs clear Cardiovascular Exam: normal heart sounds, tachycardia Gastrointestinal/Abdomen Exam: soft, tenderness (Generalized), guarding, No normal bowel sounds Extremity Exam: normal inspection, normal range of motion Neurologic Exam: alert, oriented x 3, cooperative Skin Exam: normal color SpO2 Interpretation: normal SpO2: 91 O2 Delivery: Room Air Ordered Tests: Medication Summary Discontinued Medications Generic Name Dose Route Start Last Admin Trade Name Freq PRN Reason Stop Dose Admin Diazepam 5 mg 06/15/24 03:20 Diazepam 10 Mg/2 Ml Disp.Syringe IV 07/15/24 03:19 PRN PRN ANXIETY Fentanyl Citrate 50 mcg 06/14/24 17:20 06/14/24 17:30 Fentanyl Citrate 100 Mcg/2 Ml* Vial IV 06/14/24 17:21 50 mcg STAT ONE Administration Fentanyl Citrate Confirm 06/14/24 17:28 Fentanyl Citrate 100 Mcg/2 Ml* Vial Administered 06/14/24 17:29 Dose 100 mcg .ROUTE .STK-MED ONE Sodium Chloride 1,000 mls @ 125 mls/hr 06/14/24 17:30 06/14/24 23:31 Sodium Chloride 0.9% 1000 Ml IV 07/14/24 17:29 125 mls/hr .Q8H AARON Administration Piperacillin Sod/Tazobactam 100 mls @ 200 mls/hr 06/14/24 19:59 06/14/24 20:08 Sod 3.375 gm/ Sodium Chloride IV 06/14/24 20:28 200 mls/hr STAT ONE Administration Sodium Chloride Confirm 06/14/24 20:08 Sodium Chloride 100ml Mini-Bag Plus Administered 06/14/24 20:09 Dose 100 mls @ ud IV .STK-MED ONE Sodium Chloride Confirm 06/14/24 17:29 Sodium Chloride 0.9% 1000 Ml Administered 06/14/24 17:30 Dose 1,000 mls @ ud .ROUTE .STK-MED ONE Sodium Chloride Confirm 06/14/24 23:30 Sodium Chloride 0.9% 1000 Ml Administered 06/14/24 23:31 Dose 1,000 mls @ ud .ROUTE .STK-MED ONE Dextrose/Sodium Chloride 1,000 mls @ 50 mls/hr 06/15/24 03:30 06/15/24 05:20 Dextrose 5% -0.45 Nacl 1000 Ml IV 07/15/24 03:29 Not Given .Q20H AARON Dextrose/Sodium Chloride 1,000 mls @ 50 mls/hr 06/15/24 02:40 06/15/24 03:00 Dextrose 5%-Ns Iv Solution 1000 Ml IV 07/15/24 02:39 50 mls/hr .Q20H AARON Administration Dextrose/Sodium Chloride Confirm 06/15/24 02:49 Dextrose 5%-Ns Iv Solution 1000 Ml Administered 06/15/24 02:50 Dose 1,000 mls @ ud IV .STK-MED ONE Metoclopramide HCl 10 mg 06/14/24 22:59 06/14/24 23:10 Metoclopramide Hcl 10 Mg/2 Ml Vial IV 06/14/24 23:00 10 mg STAT ONE Administration Metoclopramide HCl Confirm 06/14/24 23:09 Metoclopramide Hcl 10 Mg/2 Ml Vial Administered 06/14/24 23:10 Dose 10 mg .ROUTE .STK-MED ONE Miscellaneous Medication 1 ea 06/15/24 06:00 06/15/24 11:50 Miscellaneous Medication Order 1 Ea Each 06/15/24 06:01 1 ea NOW ONE Administration Morphine Sulfate 4 mg 06/14/24 19:03 06/14/24 19:08 Morphine Sulfate 4 Mg/Ml Injection IV 06/14/24 19:04 4 mg STAT ONE Administration Morphine Sulfate Confirm 06/14/24 19:07 Morphine Sulfate 4 Mg/Ml Injection Administered 06/14/24 19:08 Dose 4 mg .ROUTE .STK-MED ONE Morphine Sulfate 4 mg 06/14/24 22:59 06/14/24 23:13 Morphine Sulfate 4 Mg/Ml Injection IV 06/14/24 23:00 4 mg STAT ONE Administration Morphine Sulfate Confirm 06/14/24 23:09 Morphine Sulfate 4 Mg/Ml Injection Administered 06/14/24 23:10 Dose 4 mg .ROUTE .STK-MED ONE Morphine Sulfate Confirm 06/15/24 01:08 Morphine Sulfate 4 Mg/Ml Injection Administered 06/15/24 01:09 Dose 4 mg .ROUTE .STK-MED ONE Morphine Sulfate 30 mg 06/15/24 03:21 Morphine Sulfate * 1 Mg/Ml Syr IV 06/20/24 03:20 PRN PRN PAIN Morphine Sulfate 2 mg 06/15/24 02:40 06/15/24 02:56 Morphine Sulfate 2 Mg/Ml Inj IV 06/15/24 02:41 2 mg ONCE ONE Administration Morphine Sulfate 2.5 mg 06/15/24 04:15 06/15/24 07:48 Morphine Sulfate * 1 Mg/Ml Syr IV 06/20/24 04:14 2.5 mg Q1H AARON Administration Morphine Sulfate 0 mg 06/15/24 08:20 Morphine Sulfate * 1 Mg/Ml Syr IV 06/20/24 04:14 UD PRN Morphine Sulfate Confirm 06/15/24 02:49 Morphine Sulfate 2 Mg/Ml Inj Administered 06/15/24 02:50 Dose 2 mg .ROUTE .STK-MED ONE Morphine Sulfate 0 mg 06/15/24 09:44 Morphine Sulfate * 1 Mg/Ml Syr IV 06/20/24 09:43 UD PRN Non-Formulary Medication 1 each 06/15/24 03:20 06/15/24 04:08 Pharmacy Dose: Morphine Copy Editor 1 Each Each IV 06/15/24 03:21 1 each STAT STA Administration Ondansetron HCl 4 mg 06/14/24 17:20 06/14/24 17:30 Ondansetron Hcl 4 Mg/2 Ml Vial IV 06/14/24 17:21 4 mg STAT ONE Administration Ondansetron HCl Confirm 06/14/24 17:28 Ondansetron Hcl 4 Mg/2 Ml Vial Administered 06/14/24 17:29 Dose 4 mg .ROUTE .STK-MED ONE Ondansetron HCl 4 mg 06/15/24 03:22 Ondansetron Hcl 4 Mg/2 Ml Vial IV 07/15/24 03:21 Q6H PRN PRN NAUSEA/VOMITING Pantoprazole Sodium 40 mg 06/14/24 17:20 06/14/24 17:30 Pantoprazole 40 Mg Vial IV 06/14/24 17:21 40 mg STAT ONE Administration Pantoprazole Sodium Confirm 06/14/24 17:28 Pantoprazole 40 Mg Vial Administered 06/14/24 17:29 Dose 40 mg IV .STK-MED ONE Piperacillin Sod/Tazobactam Sod Confirm 06/14/24 20:07 Piperacillin/Tazobactam Sodium 3.375 Gm Vial Administered 06/14/24 20:08 Dose 3.375 gm IV .STK-MED ONE Lab/Rad Data: Laboratory Result Diagrams 06/14/24 17:52 06/14/24 17:52 Laboratory Results 06/14/24 06/14/24 06/14/24 Range/Units 19:03 17:52 17:52 WBC 11.6 H (3.98-10.04) x10^3/uL RBC 3.42 L (3.93-5.22) x10^6/uL Hgb 9.3 L (11.2-15.7) g/dL Hct 32.0 L (34.1-44.9) % MCV 93.6 (79.4-94.8) fL MCH 27.2 (25.6-32.2) pg MCHC 29.1 L (32.2-35.5) g/dL RDW 21.6 H (11.7-14.4) % Plt Count 359 (182-369) x10^3/uL MPV 10.1 (9.4-12.3) fL Gran % 78.2 H (34.0-71.1) % Immature Gran % (Auto) 0.3 (0.001-0.429) % Nucleat RBC Rel Count 0.2 (0.00-0.2) % Eos # (Auto) 0 L (0.04-0.36) x10^3/uL Immature Gran # (Auto) 0.03 (0.001-0.031) x10^3u/L Absolute Lymphs (auto) 1.83 (1.18-3.74) x10^3/uL Absolute Monos (auto) 0.65 (0.24-0.86) x10^3/uL Absolute Nucleated RBC 0.02 H (0.00-0.012) x10^3u/L Lymphocytes % 15.8 L (19.3-51.7) % Monocytes % 5.6 (4.7-12.5) % Eosinophils % 0.0 L (0.7-5.8) % Basophils % 0.1 (0.1-1.2) % Absolute Granulocytes 9.04 H (1.56-6.13) x10^3/uL Basophils # 0.01 (0.01-0.08) x10^3/uL Sodium 135 (135-145) mmol/L Potassium 3.9 (3.5-5.1) mmol/L Chloride 106 (98-107) mmol/L Carbon Dioxide 18 L (22-30) mmol/L Anion Gap 14.7 (5-15) MEQ/L BUN 22 H (7-17) mg/dL Creatinine 1.24 H (0.52-1.04) mg/dL Estimated GFR 42.4 ML/MIN Glucose 136 H (74-106) mg/dL Lactic Acid 2.2 H (0.4-2.0) Calcium 8.6 (8.4-10.2) mg/dL Total Bilirubin 0.60 (0.2-1.3) mg/dL AST 42 H (14-36) U/L ALT 27 (0-35) U/L Alkaline Phosphatase 108 (38-126) U/L Serum Total Protein 5.9 L (6.3-8.2) g/dL Albumin 2.8 L (3.5-5.0) g/dL Lipase 195 (23-300) U/L - Progress Progress: re-examined Progress Note: 06/15/24 00:04 88 years old with recently diagnosed lung cancer with metastasis is evaluated in the ER for abdominal pain with nausea vomiting. Patient was in moderate distress on presentation with tachycardia. She is given fluids and symptomatic treatment for pain, reevaluation her heart rate is a little improved. Workup showed white count of 11, chemistries with CKD which is stable around 1.2, lactate of 2.2. I have obtained CT abdomen pelvis which showed enteritis with small amount of free fluid in abdomen pelvis and also stable mesenteric and para-aortic lymphadenopathy per preliminary report, official report pending. I have given her a dose of Zosyn and continued with fluid and kept her n.p.o. I have discussed with Dr. Amandeep Riley at 2044 as patient all physicians including hematology oncology is at [place], reviewed history, CT findings and was recommended to transfer to [place] under hospitalist care as does not think patient needs any surgical intervention. I have discussed with Dr. Platt at 2130 hospitalist, at [place], reviewed history, workup and general surgery recommendation, agreed with transfer. Dr. Bradford reviewed CT to finalize at 2305 and noticed that patient does have some free air with questionable leak from the jejunal loop. I have discussed with Dr. Amandeep Riley who has reviewed the CTs imaging, does not think patient would be an candidate for surgical intervention because of her massive spread of cancer. He has spoken with patient's daughter and granddaughter who is a PA/GAS WELDER at [employer] [facility] [employer], they all agree to not go for surgical intervention and manage it conservatively, continue with fluids and antibiotics and if has no improvement by tomorrow, will think about going hospice. Patient CODE STATUS is made DNR. I have discussed the results of workup with patient and family and patient along with the family agreed to go for conservative measures for now. I have discussed with Dr. Maria Dolores [place], reviewed history, workup and agreed with admission. Discussed with .: [facility], Other (Dr. Platt hospitalist [facility], Dr. Whitten hospitalist [facility]) Will see patient in: hospital (observation) Counseled pt/family regarding: lab results, diagnosis, need for follow-up, rad results Medical Desision Making - Independent Historian Additional History obtained from: Child, Family, Relative/friend - Discussion of managment Care discussed with:: specialist (Dr. Riley general surgeon, Dr. Platt and Dr. Whitten hospitalist) Reviewed:: Test results Agreed on:: Treatment plan Will see patient: in hospital - Diagnostic Testing Diagnostic test were ordered, analyzed, and reviewed by me: Yes Radiological Interpretation: Reviewed by me - Risk of complications The pt has a mod risk of morbidity or mortality based on: Need for prescription drug management The pt has a high risk of morbidity or mortality based on: Decision regarding hospitilization or escalation of hosp level of care - Departure Departure Disposition: Observation Clinical Impression: Intestinal perforation, Metastatic lung cancer (metastasis from lung to other site), Enteritis Condition: Critical Critical Care Time: Yes Critical Care Time(excluding separately billable procedures): Critical 30-74 mins
[2024-06-14] MEDS ORDERED: SUBLIMAZE 100 MCG/2 ML ONE (17:28)
[2024-06-14] MEDS ORDERED: Zofran 4 MG/2 ML VIAL ONE (17:28)
[2024-06-14] MEDS ORDERED: PROTONIX 40 MG IV IV ONE (17:28)
[2024-06-14] MEDS ORDERED: Sodium Chloride 0.9% 1000 ML 1,000 ML ONE ×2 (17:29→23:30)
[2024-06-14] MEDS: SUBLIMAZE 100 MCG/2 ML IV ONE (17:30)
[2024-06-14] MEDS: Zofran 4 MG/2 ML VIAL IV ONE (17:30)
[2024-06-14] MEDS: PROTONIX 40 MG IV IV ONE (17:30)
[2024-06-14] MEDS: Sodium Chloride 0.9% 1000 ML 1,000 ML IV SCH (17:31)
[2024-06-14 18:24] LABS: ALBUMIN 2.8 g/dL (3.5-5.0); ANION GAP 14.7 MEQ/L (5-15); BILIRUBIN,TOTAL 0.6 mg/dL (0.2-1.3); Calcium 8.6 mg/dL (8.4-10.2); Creatinine 1 1.24 mg/dL (0.52-1.04); EST GLOMERULAR FILTRATION RATE 42.4 ML/MIN; Potassium 3.9 mmol/L (3.5-5.1); Total Protein 5.9 g/dL (6.3-8.2)
[2024-06-14 18:26] LABS: Absolute Neutrophil Ct (ANC) 9.04 x10^3/uL (1.56-6.13); BASOPHIL % 0.1 % (0.1-1.2); Basophil (Absolute #) 0.01 x10^3/uL (0.01-0.08); Eosinophil (Absolute #) 0 x10^3/uL (0.04-0.36); Hemoglobin 9.3 g/dL (11.2-15.7); IMMATURE GRAN # 0.03 x10^3u/L (0.001-0.031); IMMATURE GRAN % 0.3 % (0.001-0.429); Lymphocyte (Absolute #) 1.83 x10^3/uL (1.18-3.74); Lymphocytes % 15.8 % (19.3-51.7); Mean Cell Volume 93.6 fL (79.4-94.8); Mean Corpuscular Hemoglobin 27.2 pg (25.6-32.2); Mean Corpuscular Hgb Concent. 29.1 g/dL (32.2-35.5); Mean Platelet Volume 10.1 fL (9.4-12.3); Monocyte (Absolute #) 0.65 x10^3/uL (0.24-0.86); Monocytes % 5.6 % (4.7-12.5); NUCLEATED RBC # 0.02 x10^3u/L (0.00-0.012); NUCLEATED RBC % 0.2 % (0.00-0.2); Neutrophil % 78.2 % (34.0-71.1); Platelet Count 359 x10^3/uL (182-369); Red Blood Count 3.42 x10^6/uL (3.93-5.22); Red Cell Distribution Width 21.6 % (11.7-14.4); White Blood Count 11.6 x10^3/uL (3.98-10.04)
[2024-06-14] MEDS ORDERED: MORPHINE SULFATE 4 MG INJ ONE ×2 (19:07→23:09)
[2024-06-14] MEDS: MORPHINE SULFATE 4 MG INJ IV ONE ×2 (19:08→23:13)
[2024-06-14] MEDS ORDERED: PIPERACILLIN/TAZOBACTAM IV ONE (20:07)
[2024-06-14] MEDS ORDERED: Sodium Chloride 100ML MINI-BAG PLUS 100 ML IV ONE (20:08)
[2024-06-14] MEDS: PIPERACILLIN/TAZOBACTAM 3.375 GM in Sodium Chloride 100ML MINI-BAG PLUS 100 ML IV ONE (20:08)
[2024-06-14] MEDS ORDERED: Reglan 10 MG/2 ML ONE (23:09)
[2024-06-14] MEDS: Reglan 10 MG/2 ML IV ONE (23:10)
--- NOTE | 2024-06-14 23:20 | XRAY ---
Indication: General abdominal pain. History lung cancer. Multiple contiguous axial images obtained through the abdomen and pelvis without contrast. Comparison: February 27, 2024 Lung bases demonstrates new moderate right lower lobe infiltrate/atelectasis/effusion. Again mild left lung base dependent atelectasis. Heart not enlarged again with scattered coronary calcifications. Noncontrast stomach and bowel loops appear nonobstructed. Stable 4 cm descending duodenal diverticulum filled with gastric debris/food. Jejunal bowel loops now demonstrates circumferential wall thickening and stranding favoring enteritis. A midline jejunal bowel loop demonstrates marked wall thickening with tiny perforation and a few tiny mesenteric free air bubbles (Image 45). Again sigmoid diverticulosis, hepatic/splenic calcified granulomas, cholecystectomy, and hysterectomy. Grossly stable appearing mesenteric root, mid mesenteric, and periaortic lymphadenopathy. New diffuse mesenteric edema versus peritonitis. Also new small abdominal and pelvic free fluid. No walled off fluid collection. Remaining liver, pancreas, spleen, adrenal glands, kidneys, ureters, and bladder are unremarkable for noncontrast exam. Again extensive scattered arteriosclerotic calcifications without AAA. Osseous structures intact again with osteopenia, dextroscoliosis, mild/moderate level degenerative spondylosis, and mild degenerative changes both hips. Impression: 1. New left abdominal small bowel wall thickening and stranding favoring enteritis. Tiny jejunal perforation as detailed. 2. New diffuse mesenteric edema versus peritonitis with small abdominal/pelvic free fluid. 3. New right lung base infiltrate/atelectasis/effusion. 4. Grossly stable mesenteric root, left mid mesenteric, and periaortic lymphadenopathy again concerning for primary versus metastatic malignancy. 5. Again chronic findings including sigmoid diverticulosis, arteriosclerotic disease, chronic bony findings, and old granulomatous disease. Comment: Small bowel perforation was not reported on preliminary interpretation. Telephone report was given to Dr. Rosa at 2304 hrs. on June 14, 2024.
[2024-06-15] MEDS ORDERED: MORPHINE SULFATE 4 MG INJ ONE (01:08)
[2024-06-15] MEDS ORDERED: MORPHINE SULFATE 2 MG INJ ONE (02:49)
[2024-06-15] MEDS ORDERED: Dextrose 5%-NS IV Solution 1000 ML 1,000 ML IV ONE (02:49)
[2024-06-15] MEDS: MORPHINE SULFATE 2 MG INJ IV ONE (02:56)
[2024-06-15] MEDS: Dextrose 5%-NS IV Solution 1000 ML 1,000 ML IV SCH (03:00)
--- NOTE | 2024-06-15 03:07 | PCM.HP ---
History of Present Illness - Chief Complaint Chief Complaint: abd pain Date: 06/15/24 History of Present Illness: Ms. OCHOA is a 88 year old female with a past medical history significant for hypertension, hyperlipdiemia, and recent diagnosis of metastatic lung cancer who was planning to pursue treatment but presented to the ER with complaints of abdominal pain. Initial CT abd read as enteritis and she was started on IV antibiotics with plans to transfer to [facility]. Symptoms persisted and CT was read again, this time with the finding of free air. General surgery was consulted and she was deemed too unstable for surgery. Family was informed and have agreed to pursue hospice/comfort. She is resting in bed, lethargic but arousable. She did receive morphine in the ER but does note that it does not last very long and the symptoms have returned. No fever/chills. No chest pain or shortness of breath. No current nausea, vomiting or diarrhea. - Review of Systems All Other Systems: Unable due to condition Medications & Allergies Home Medications: Home Medication List Atorvastatin Calcium 80 mg PO DAILY 08/23/18 [History Confirmed 06/14/24] Levothyroxine Sodium 75 Mcg [Synthroid 75 Mcg] 75 mcg PO DAILY 08/23/18 [History Confirmed 06/14/24] Pantoprazole Sodium [Protonix] 40 mg PO DAILY 08/23/18 [History Confirmed 06/14/24] Lorazepam [Ativan] 1 mg PO DAILY 03/18/22 [History Confirmed 06/14/24] Spironolactone 25 mg [Aldactone 25 MG] 25 mg PO DAILY 03/18/22 [History Confirmed 06/14/24] Ezetimibe 10 mg [Zetia 10 MG] 10 mg PO DAILY 03/25/22 [History Confirmed 06/14/24] Clopidogrel Bisulfate [PLAVIX Tablet] 75 mg PO DAILY 06/17/23 [History Confirmed 06/14/24] Aspirin EC 81 mg [Ecotrin 81 mg] 81 mg PO DAILY 06/14/24 [History Confirmed 06/14/24] Docusate Sodium [Stool Softener] 200 mg PO DAILY 06/14/24 [History Confirmed 06/14/24] Methylprednisolone 4 mg [Medrol 4 mg] See Rx Instructions .ROUTE .COMPLEX 06/14/24 [History Confirmed 06/14/24] Allergies/Adverse Reactions: Allergies Allergy/AdvReac Type Severity Reaction Status Date / Time Sulfa (Sulfonamide Allergy Verified 06/14/24 16:46 Antibiotics) - Past Medical History Past Medical History: Yes Neurological History: No Pertinent History ENT History: No Pertinent History Cardiac History: Coronary Artery Disease, Hypertension, Other Respiratory History: Lung Cancer, Sleep Apnea Endocrine Medical History: Diabetes Type II, Other Musculoskelatal History: Osteoporosis GI Medical History: Gallbladder Disease, Hemorrhoids History: No Pertinent History Pyscho-Social History: No Pertinent History Reproductive Disorders: No Pertinent History Comment: thyroid issues,blockages. Lung CA with mets to lymph nodes: MD practices out of [facility] in [place], [place] - Past Surgical History Past Surgical History: Yes Neuro Surgical History: No Pertinent History Cardiac History: Cardiac Catheterization, Cardiac Stent Respiratory Surgery: No Pertinent History GI Surgical History: Cholecystectomy Genitourinary Surgical Hx: No Pertinent History Musculskeletal Surgical Hx: Other Female Surgical History: Hysterectomy Other Surgical History: rotator R cuff surgery; spinal surgery, right carotid endarterectomy. stents in at least 1 leg - Social History Smoking Status: Former smoker How long have you smoked: 40 years Exposure to second hand smoke: No Alcohol: None Drug Use: none - Social Determinants of Health Will the patient participate in the screening: Yes Do you worry about a steady place to live?: No Do you have any problems with any of the following?: No known problems In the past 12 months,have you had to go without utilities?: No Have you or anyone in your house had to go without enough: No Transportation Issues: No Has anyone in your support network made you feel unsafe?: No - Physical Exam Vital Signs: Vital Signs - 24 hr Temp Pulse Resp BP BP Pulse Ox 06/15/24 00:15 91 L 06/15/24 00:00 127 H 112/63 94 L 06/14/24 23:45 142 H 142/60 93 L 06/14/24 23:30 132 H 126/105 94 L 06/14/24 23:15 99.7 F 134 H 140/83 93 L 06/14/24 23:00 130 H 123/99 92 L 06/14/24 22:45 116 H 111/72 06/14/24 22:30 113 H 20 108/68 92 L 06/14/24 22:15 108 H 20 104/56 91 L 06/14/24 22:00 112 H 20 112/63 93 L 06/14/24 21:46 111 H 23 119/41 94 L 06/14/24 21:31 115 H 26 H 129/99 06/14/24 21:15 99.1 F 126 H 126/66 93 L 06/14/24 21:01 112 H 25 H 117/71 92 L 06/14/24 20:45 107 H 24 107/65 93 L 06/14/24 20:30 112 H 23 120/54 92 L 06/14/24 20:16 112 H 24 133/57 93 L 06/14/24 20:00 110 H 24 133/65 94 L 06/14/24 19:45 126 H 25 H 134/70 96 06/14/24 19:31 143 H 26 H 124/70 93 L 06/14/24 19:00 122 H 29 H 129/49 91 L 06/14/24 18:56 132 H 36 H 89 L 06/14/24 18:50 126 H 22 92 L 06/14/24 18:47 137 H 30 H 94 L 06/14/24 18:30 118 H 34 H 118/62 94 L 06/14/24 18:29 117 H 27 H 110/72 93 L 06/14/24 18:01 139/60 06/14/24 17:46 110 H 27 H 103/49 95 06/14/24 17:45 120 H 27 H 90 L 06/14/24 17:40 110 H 29 H 91 L 06/14/24 17:32 126 H 24 94 L 06/14/24 17:16 122 H 30 H 96/42 93 L 06/14/24 17:00 117 H 28 H 127/75 91 L 06/14/24 16:46 97.7 F 110 H 26 H 129/85 94 L General Appearance: moderate distress Neurologic Exam: agitation Ears, Nose, Throat Exam: dry mucous membranes Neck Exam: supple Respiratory Exam: No respiratory distress Cardiovascular Exam: regular rate/rhythm Gastrointestinal/Abdomen Exam: tenderness, guarding Extremity Exam: No pedal edema, No swelling Skin Exam: normal color, No rash Results - Labs Lab/Micro Results: Lab Results-Last 24 Hours 06/14/24 06/14/2424 Range/Units 17:52 17:52 19:03 WBC 11.6 H (3.98-10.04) x10^3/uL RBC 3.42 L (3.93-5.22) x10^6/uL Hgb 9.3 L (11.2-15.7) g/dL Hct 32.0 L (34.1-44.9) % MCV 93.6 (79.4-94.8) fL MCH 27.2 (25.6-32.2) pg MCHC 29.1 L (32.2-35.5) g/dL RDW 21.6 H (11.7-14.4) % Plt Count 359 (182-369) x10^3/uL MPV 10.1 (9.4-12.3) fL Gran % 78.2 H (34.0-71.1) % Immature Gran % (Auto) 0.3 (0.001-0.429) % Nucleat RBC Rel Count 0.2 (0.00-0.2) % Eos # (Auto) 0 L (0.04-0.36) x10^3/uL Immature Gran # (Auto) 0.03 (0.001-0.031) x10^3u/L Absolute Lymphs (auto) 1.83 (1.18-3.74) x10^3/uL Absolute Monos (auto) 0.65 (0.24-0.86) x10^3/uL Absolute Nucleated RBC 0.02 H (0.00-0.012) x10^3u/L Lymphocytes % 15.8 L (19.3-51.7) % Monocytes % 5.6 (4.7-12.5) % Eosinophils % 0.0 L (0.7-5.8) % Basophils % 0.1 (0.1-1.2) % Absolute Granulocytes 9.04 H (1.56-6.13) x10^3/uL Basophils # 0.01 (0.01-0.08) x10^3/uL Sodium 135 (135-145) mmol/L Potassium 3.9 (3.5-5.1) mmol/L Chloride 106 (98-107) mmol/L Carbon Dioxide 18 L (22-30) mmol/L Anion Gap 14.7 (5-15) MEQ/L BUN 22 H (7-17) mg/dL Creatinine 1.24 H (0.52-1.04) mg/dL Estimated GFR 42.4 ML/MIN Glucose 136 H (74-106) mg/dL Lactic Acid 2.2 H (0.4-2.0) Calcium 8.6 (8.4-10.2) mg/dL Total Bilirubin 0.60 (0.2-1.3) mg/dL AST 42 H (14-36) U/L ALT 27 (0-35) U/L Alkaline Phosphatase 108 (38-126) U/L Serum Total Protein 5.9 L (6.3-8.2) g/dL Albumin 2.8 L (3.5-5.0) g/dL Lipase 195 (23-300) U/L - Radiology Impressions Radiology Exams & Impressions: Radiology Procedures Category Date Time Status ABDOMEN AND PELVIS W/0 CONTRAS [CT] Stat Exams 06/14/24 17:21 Completed Assessment/Plan (1) Intestinal perforation Current Visit: Yes Status: Acute Assessment & Plan: 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 Admit to hospital 2. Pain control 3. Family does not wish aggressive measures 4. Anti-emetics Code(s): K63.1 - PERFORATION OF INTESTINE (NONTRAUMATIC) (2) Metastatic lung cancer (metastasis from lung to other site) Current Visit: Yes Status: Acute Assessment & Plan: Discussion with family about situation, they would like to pursue comfort measures +/- hospice 1. Morphine drip 2. Anti-anxiety meds 3. DNR status Code(s): C34.90 - MALIGNANT NEOPLASM OF UNSP PART OF UNSP BRONCHUS OR LUNG (3) Acute kidney injury Current Visit: Yes Status: Acute Assessment & Plan: Likely some prerenal azotemia with elevated creatinine of 1.2 1. Gentle IVFs 2. Encourage PO intake if able Code(s): N17.9 - ACUTE KIDNEY FAILURE, UNSPECIFIED (4) Essential (primary) hypertension Current Visit: Yes Status: Acute Code(s): I10 - ESSENTIAL (PRIMARY) HYPERTENSION Telemedicine Encounter - Telemedicine Encounter Telemedicine Encounter: "The entirety of this encounter was performed via Telemedicine" This visit was performed using real-time audio and video connection between my l ocation and thepatients locationwith the assistance of a surrogateat the patients location. Written or verbal consent was obtained from the patient/guardian to perform this visit usingsynchrYi Chang [employer]ai ITtelemedicine technology. Any patient questions regarding the telemedicine interaction were answered.
[2024-06-15] MEDS ORDERED: VALIUM 10 MG/2 ML SYRINGE IV PRN (03:20)
[2024-06-15] MEDS ORDERED: Morphine PCA 1 MG/ML IV PRN ×3 (03:21→09:44)
[2024-06-15] MEDS ORDERED: Zofran 4 MG/2 ML VIAL IV PRN (03:22)
[2024-06-15] MEDS: PHARMACY DOSING REQUIRED: MORPHINE PCA IV STA (04:08)
[2024-06-15] MEDS: Morphine PCA 1 MG/ML IV SCH (04:30)
[2024-06-15] MEDS: Dextrose 5% -0.45 NaCl 1000 ML 1,000 ML IV SCH (05:20)
[2024-06-15 11:21] VITALS: BP 86/57; PULSE 104; RESP 16; TEMP 98.4
[2024-06-15] MEDS: Miscellaneous Medication Order MC ONE (11:50)
--- NOTE | 2024-06-15 14:04 | PCM.DS ---
Discharge Summary Date of Admission: 06/15/24 01:45 Date of Discharge: 06/15/24 Admitting Physician: SEDA RASHEED MD Primary Care Provider: MARLENY TANG Allergies Allergies Sulfa (Sulfonamide Antibiotics) Allergy (Verified 06/15/24 10:08) unknown Hospital Summary - Hospital Course Hospital Course: Ms. OCHOA is a 88 year old female with a past medical history significant for hypertension, hyperlipdiemia, and recent diagnosis of metastatic lung cancer who was planning to pursue treatment but presented to the ER with complaints of abdominal pain. Initial CT abd read as enteritis and she was started on IV antibiotics with plans to transfer to [facility]. Symptoms persisted and CT was read again, this time with the finding of free air. General surgery was consulted and she was deemed too unstable for surgery. Family was informed and have agreed to pursue hospice/comfort. She is resting in bed, lethargic but arousable. She did receive morphine in the ER but does note that it does not last very long and the symptoms have returned. No fever/chills. No chest pain or shortness of breath. No current nausea, vomiting or diarrhea. Pt to [facility] to [facility] hospice. - Vitals & Intake/Output Vital Signs: Vital Signs Temperature 98.4 F 06/15/24 11:20 Pulse Rate 104 H 06/15/24 11:20 Respiratory Rate 16 06/15/24 11:20 Blood Pressure 86/57 06/15/24 11:20 O2 Sat by Pulse Oximetry 93 L 06/15/24 11:20 Intake & Output: Intake & Output 06/13/24 06/14/24 06/15/24 06/16/24 11:59 11:59 11:59 11:59 Intake Total 371 Output Total 400 Balance 371 -400 Weight 79.4 kg - Lab Result Diagrams: 06/14/24 17:52 06/14/24 17:52 Lab Results-Last 24 Hrs: Lab Results-Last 24 Hours 06/14/24 06/14/24 06/14/24 Range/Units 17:52 17:52 19:03 WBC 11.6 H (3.98-10.04) x10^3/uL RBC 3.42 L (3.93-5.22) x10^6/uL Hgb 9.3 L (11.2-15.7) g/dL Hct 32.0 L (34.1-44.9) % MCV 93.6 (79.4-94.8) fL MCH 27.2 (25.6-32.2) pg MCHC 29.1 L (32.2-35.5) g/dL RDW 21.6 H (11.7-14.4) % Plt Count 359 (182-369) x10^3/uL MPV 10.1 (9.4-12.3) fL Gran % 78.2 H (34.0-71.1) % Immature Gran % (Auto) 0.3 (0.001-0.429) % Nucleat RBC Rel Count 0.2 (0.00-0.2) % Eos # (Auto) 0 L (0.04-0.36) x10^3/uL Immature Gran # (Auto) 0.03 (0.001-0.031) x10^3u/L Absolute Lymphs (auto) 1.83 (1.18-3.74) x10^3/uL Absolute Monos (auto) 0.65 (0.24-0.86) x10^3/uL Absolute Nucleated RBC 0.02 H (0.00-0.012) x10^3u/L Lymphocytes % 15.8 L (19.3-51.7) % Monocytes % 5.6 (4.7-12.5) % Eosinophils % 0.0 L (0.7-5.8) % Basophils % 0.1 (0.1-1.2) % Absolute Granulocytes 9.04 H (1.56-6.13) x10^3/uL Basophils # 0.01 (0.01-0.08) x10^3/uL Sodium 135 (135-145) mmol/L Potassium 3.9 (3.5-5.1) mmol/L Chloride 106 (98-107) mmol/L Carbon Dioxide 18 L (22-30) mmol/L Anion Gap 14.7 (5-15) MEQ/L BUN 22 H (7-17) mg/dL Creatinine 1.24 H (0.52-1.04) mg/dL Estimated GFR 42.4 ML/MIN Glucose 136 H (74-106) mg/dL Lactic Acid 2.2 H (0.4-2.0) Calcium 8.6 (8.4-10.2) mg/dL Total Bilirubin 0.60 (0.2-1.3) mg/dL AST 42 H (14-36) U/L ALT 27 (0-35) U/L Alkaline Phosphatase 108 (38-126) U/L Serum Total Protein 5.9 L (6.3-8.2) g/dL Albumin 2.8 L (3.5-5.0) g/dL Lipase 195 (23-300) U/L - Radiology Exams Ordered Rad Exams-Entire Visit: Radiology Procedures Category Date Time Status ABDOMEN AND PELVIS W/0 CONTRAS [CT] Stat Exams 06/14/24 17:21 Completed - Procedures and Test Procedures and Tests throughout Hospitalization: Therapy Orders & Screens 06/15/24 03:17 Respiratory Therapy Consult ONCE Comment: Reason For Exam: Diagnosis: abd pain 06/15/24 07:45 Oxygen Nasal Cannula 4 lpm Comment: Diagnosis: abd pain Discharge Exam General Appearance: no apparent distress, alert, lethargy Neurologic Exam: alert, oriented x 3, cooperative, normal mood/affect, nml cerebellar function, sensation nml, No motor deficits Eye Exam: PERRL, EOMI, eyes nml inspection Ears, Nose, Throat Exam: normal ENT inspection, pharynx normal, moist mucous membranes Neck Exam: normal inspection, non-tender, supple, full range of motion Respiratory Exam: normal breath sounds, lungs clear, No respiratory distress Cardiovascular Exam: regular rate/rhythm, normal heart sounds Gastrointestinal/Abdomen Exam: soft, tenderness, No mass Pelvic Exam: deferred Rectal Exam: deferred Back Exam: normal inspection, normal range of motion, No CVA tenderness, No vertebral tenderness Extremity Exam: normal inspection, normal range of motion Skin Exam: warm, dry, pale Final Diagnosis/Problem List - Final Discharge Diagnosis/Problem (1) Acute kidney injury Current Visit: Yes Status: Acute Code(s): N17.9 - ACUTE KIDNEY FAILURE, UNSPECIFIED (2) Essential (primary) hypertension Current Visit: Yes Status: Acute Code(s): I10 - ESSENTIAL (PRIMARY) HYPERTENSION (3) Intestinal perforation Current Visit: Yes Status: Acute Code(s): K63.1 - PERFORATION OF INTESTINE (NONTRAUMATIC) (4) Metastatic lung cancer (metastasis from lung to other site) Current Visit: Yes Status: Acute Assessment & Plan: (1) Intestinal perforation Current Visit: Yes Status: Acute Assessment & Plan: 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 Admit to hospital 2. Pain control 3. Family does not wish aggressive measures 4. Anti-emetics Code(s): K63.1 - PERFORATION OF INTESTINE (NONTRAUMATIC) (2) Metastatic lung cancer (metastasis from lung to other site) Current Visit: Yes Status: Acute Assessment & Plan: Discussion with family about situation, they would like to pursue comfort measures +/- hospice 1. Morphine drip 2. Anti-anxiety meds 3. DNR status Code(s): C34.90 - MALIGNANT NEOPLASM OF UNSP PART OF UNSP BRONCHUS OR LUNG (3) Acute kidney injury Current Visit: Yes Status: Acute Assessment & Plan: Likely some prerenal azotemia with elevated creatinine of 1.2 1. Gentle IVFs 2. Encourage PO intake if able Code(s): N17.9 - ACUTE KIDNEY FAILURE, UNSPECIFIED (4) Essential (primary) hypertension Current Visit: Yes Status: Acute Code(s): I10 - ESSENTIAL (PRIMARY) HYPERTENSION Code(s): C34.90 - MALIGNANT NEOPLASM OF UNSP PART OF UNSP BRONCHUS OR LUNG - Discharge Discharge Date: 06/15/24 ([facility]) Disposition: Hospice @ [facility] Condition: Critical Prescriptions: Continue Atorvastatin Calcium 80 mg PO DAILY Pantoprazole Sodium [Protonix] 40 mg PO DAILY Levothyroxine Sodium 75 Mcg [Synthroid 75 Mcg] 75 mcg PO DAILY Spironolactone 25 mg [Aldactone 25 MG] 25 mg PO DAILY Lorazepam [Ativan] 1 mg PO DAILY Ezetimibe 10 mg [Zetia 10 MG] 10 mg PO DAILY Clopidogrel Bisulfate [PLAVIX Tablet] 75 mg PO DAILY Aspirin EC 81 mg [Ecotrin 81 mg] 81 mg PO DAILY Cyanocobalamin (Vitamin B-12) [B-12] 3,000 mcg SL UD lisinopriL [Lisinopril] 40 mg PO UD Amlodipine Besylate 10 mg PO UD Vit 28/Iron Fum/Folic [Theranatal Core Nutrition Tab] 1 each PO UD Follow up with: MARLENY TANG MD [Primary Care Provider] -
[2024-06-16 16:11] VITALS: O2SAT 91
== END 2024-06-15 14:10 ==
LOC: ED 16:39 → MED SURG 06-15 01:45
PROVIDERS: ADMIT Internal Medicine Nephrology; ATTEND Internal Medicine Nephrology
DX: N17.9 Acute kidney failure, unspecified (principal); I10 Essential (primary) hypertension; K63.1 Perforation of intestine (nontraumatic); C34.90 Malignant neoplasm of unspecified part of unspecified bronchus or lung; E78.5 Hyperlipidemia, unspecified; E11.9 Type 2 diabetes mellitus without complications; Z79.899 Other long term (current) drug therapy; Z79.01 Long term (current) use of anticoagulants
CPT/HCPCS: 36000; 36415; 74176; 80053; 83605; 83690; 85025; 93268; 94760; 96360; 96361; 96365; 96374; 96375; 99285; 99291; J2270; J2405; J3010; Q3014; G0378

== ENCOUNTER 2024-06-15 14:10 | Inpatient (IN) | payer OTHER ==
[2024-06-15] MEDS ORDERED: Zofran 4 MG/2 ML VIAL IV PRN (14:29)
--- NOTE | 2024-06-15 15:51 | PCM.HP ---
History of Present Illness - Chief Complaint Chief Complaint: INTESTINAL PERFORATION Date: 06/15/24 History of Present Illness: Ms. OCHOA is a 88 year old female with a past medical history significant for hypertension, hyperlipdiemia, and recent diagnosis of metastatic lung cancer who was planning to pursue treatment but presented to the ER with complaints of abdominal pain. Initial CT abd read as enteritis and she was started on IV antibiotics with plans to transfer to [facility]. Symptoms persisted and CT was read again, this time with the finding of free air. General surgery was consulted and she was deemed too unstable for surgery. Family was informed and have agreed to pursue hospice/comfort. She is resting in bed, lethargic but arousable. She did receive morphine in the ER but does note that it does not last very long and the symptoms have returned. No fever/chills. No chest pain or shortness of breath. No current nausea, vomiting or diarrhea. Pt to [facility]er to [facility] hospice. - Review of Systems Constitutional: Fatigue, Lethargy, No Fever, No Chills Eyes: No Symptoms Ears, Nose, & Throat: No Symptoms Respiratory: No Cough, No Short Of Breath Cardiac: No Chest Pain, No Edema, No Syncope Abdominal/Gastrointestinal: Abdominal Pain, No Nausea, No Vomiting, No Diarrhea Genitourinary Symptoms: No Dysuria Musculoskeletal: No Back Pain, No Neck Pain Skin: No Rash Neurological: No Dizziness, No Focal Weakness, No Sensory Changes Psychological: No Symptoms Endocrine: No Symptoms Hematologic/Lymphatic: No Symptoms Immunological/Allergic: No Symptoms Medications & Allergies Home Medications: Home Medication List Atorvastatin Calcium 80 mg PO DAILY 08/23/18 [History Confirmed 06/15/24] Levothyroxine Sodium 75 Mcg [Synthroid 75 Mcg] 75 mcg PO DAILY 08/23/18 [History Confirmed 06/15/24] Pantoprazole Sodium [Protonix] 40 mg PO DAILY 08/23/18 [History Confirmed 06/15/24] Lorazepam [Ativan] 1 mg PO DAILY 03/18/22 [History Confirmed 06/15/24] Spironolactone 25 mg [Aldactone 25 MG] 25 mg PO DAILY 03/18/22 [History Confirmed 06/15/24] Ezetimibe 10 mg [Zetia 10 MG] 10 mg PO DAILY 03/25/22 [History Confirmed 06/15/24] Clopidogrel Bisulfate [PLAVIX Tablet] 75 mg PO DAILY 06/17/23 [History Confirmed 06/15/24] Aspirin EC 81 mg [Ecotrin 81 mg] 81 mg PO DAILY 06/14/24 [History Confirmed 06/15/24] Amlodipine Besylate 10 mg PO UD 06/15/24 [History Confirmed 06/15/24] Cyanocobalamin (Vitamin B-12) [B-12] 3,000 mcg SL UD 06/15/24 [History Confirmed 06/15/24] Vit 28/Iron Fum/Folic [Theranatal Core Nutrition Tab] 1 each PO UD 06/15/24 [History Confirmed 06/15/24] lisinopriL [Lisinopril] 40 mg PO UD 06/15/24 [History Confirmed 06/15/24] Allergies/Adverse Reactions: Allergies Allergy/AdvReac Type Severity Reaction Status Date / Time Sulfa (Sulfonamide Allergy Verified 06/15/24 10:08 Antibiotics) - Past Medical History Past Medical History: Yes Neurological History: No Pertinent History ENT History: No Pertinent History Cardiac History: Coronary Artery Disease, Hypertension, Other Respiratory History: Lung Cancer, Sleep Apnea Endocrine Medical History: Diabetes Type II, Other Musculoskelatal History: Osteoporosis GI Medical History: Gallbladder Disease, Hemorrhoids History: No Pertinent History Pyscho-Social History: No Pertinent History Reproductive Disorders: No Pertinent History Comment: thyroid issues,blockages. Lung CA with mets to lymph nodes: MD practices out of [facility] in [place], [place] - Past Surgical History Past Surgical History: Yes Neuro Surgical History: No Pertinent History Cardiac History: Cardiac Catheterization, Cardiac Stent Respiratory Surgery: No Pertinent History GI Surgical History: Cholecystectomy Genitourinary Surgical Hx: No Pertinent History Musculskeletal Surgical Hx: Other Female Surgical History: Hysterectomy Other Surgical History: rotator R cuff surgery; spinal surgery, right carotid endarterectomy. stents in at least 1 leg - Social History Smoking Status: Former smoker How long have you smoked: 40 years Exposure to second hand smoke: No Alcohol: None Drug Use: none - Social Determinants of Health Will the patient participate in the screening: Yes Do you worry about a steady place to live?: No In the past 12 months,have you had to go without utilities?: No Have you or anyone in your house had to go without enough: No Transportation Issues: No Has anyone in your support network made you feel unsafe?: No Does the patient want assistance with any of the above?: No - Physical Exam General Appearance: no apparent distress, alert Neurologic Exam: alert, oriented x 3, cooperative, normal mood/affect, nml cerebellar function, nml station & gait, sensation nml, No motor deficits Eye Exam: PERRL/EOMI, eyes nml inspection Ears, Nose, Throat Exam: normal ENT inspection, TMs normal, pharynx normal, moist mucous membranes Neck Exam: normal inspection, non-tender, supple, full range of motion Respiratory Exam: normal breath sounds, lungs clear, No respiratory distress Cardiovascular Exam: regular rate/rhythm, normal heart sounds, normal peripheral pulses Gastrointestinal/Abdomen Exam: soft, tenderness, other (NO BS X4 quad), No mass Back Exam: normal inspection, normal range of motion, No CVA tenderness, No vertebral tenderness Extremity Exam: normal inspection, normal range of motion, pelvis stable Skin Exam: normal color, warm, dry, No rash Lymphatic Exam: No adenopathy Results - Other Procedures and Tests Respiratory Therapy 06/15/24 14:29 Oxygen Nasal Cannula 4 lpm Assessment/Plan (1) Acute kidney injury Current Visit: No Status: Acute Code(s): N17.9 - ACUTE KIDNEY FAILURE, UNSPECIFIED (2) Essential (primary) hypertension Current Visit: No Status: Acute Code(s): I10 - ESSENTIAL (PRIMARY) HYPERTENSION (3) Intestinal perforation Current Visit: No Status: Acute Code(s): K63.1 - PERFORATION OF INTESTINE (N ONTRAUMATIC) (4) Metastatic lung cancer (metastasis from lung to other site) Current Visit: No Status: Acute Assessment & Plan: (1) Intestinal perforation Current Visit: Yes Status: Acute Assessment & Plan: 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 Admit to hospice 2. Pain control 3. Family does not wish aggressive measures 4. Anti-emetics Code(s): K63.1 - PERFORATION OF INTESTINE (NONTRAUMATIC) (2) Metastatic lung cancer (metastasis from lung to other site) Current Visit: Yes Status: Acute Assessment & Plan: Discussion with family about situation, they would like to pursue comfort measures +/- hospice 1. Morphine drip 2. Anti-anxiety meds 3. DNR status Code(s): C34.90 - MALIGNANT NEOPLASM OF UNSP PART OF UNSP BRONCHUS OR LUNG (3) Acute kidney injury Current Visit: Yes Status: Acute Assessment & Plan: Likely some prerenal azotemia with elevated creatinine of 1.2 1. Gentle IVFs 2. Encourage PO intake if able Code(s): N17.9 - ACUTE KIDNEY FAILURE, UNSPECIFIED (4) Essential (primary) hypertension - stop all home meds Current Visit: Yes Status: Acute Code(s): I10 - ESSENTIAL (PRIMARY) HYPERTENSION Code(s): C34.90 - MALIGNANT NEOPLASM OF UNSP PART OF UNSP BRONCHUS OR LUNG
[2024-06-15] MEDS: Morphine PCA 1 MG/ML IV PRN (16:54)
[2024-06-15] MEDS: Dextrose 5%-NS IV Solution 1000 ML 1,000 ML IV SCH (22:23)
--- NOTE | 2024-06-16 12:05 | PCM.DS ---
Discharge Summary Date of Admission: 06/15/24 14:10 Date of Discharge: 06/16/24 Admitting Physician: PARVIZ GONZALEZ MD Primary Care Provider: MARLENY TANG Allergies Allergies Sulfa (Sulfonamide Antibiotics) Allergy (Verified 06/15/24 10:08) unknown Hospital Summary - Hospital Course Hospital Course: 06/15 Ms. OCHOA is a 88 year old female with a past medical history significant for hypertension, hyperlipdiemia, and recent diagnosis of metastatic lung cancer who was planning to pursue treatment but presented to the ER on 06/15/24 with complaints of abdominal pain. Initial CT abd read as enteritis and she was started on IV antibiotics with plans to transfer to [facility]. Symptoms persisted and CT was read again, this time with the finding of free air. General surgery was consulted and she was deemed too unstable for surgery. Family was informed and have agreed to pursue hospice/comfort. She is resting in bed, lethargic but arousable. She did receive morphine in the ER but does note that it does not last very long and the symptoms have returned. No fever/chills. No chest pain or shortness of breath. No current nausea, vomiting or diarrhea. Pt to mold changer to [facility] hospice. 06/16 Pt under hospice care and plan is to keep IP until she passes. Today she is not in pain. Bp low and RR low as well. She has no BS x4 and legs are mottled. Discussed any further needs at this time with daughter in room. - Vitals & Intake/Output Vital Signs: Vital Signs Temperature 98.5 F 06/16/24 10:50 Pulse Rate 58 L 06/16/24 10:50 Respiratory Rate 5 L 06/16/24 10:50 Blood Pressure 62/54 06/16/24 10:50 O2 Sat by Pulse Oximetry 90 L 06/16/24 08:47 Intake & Output: Intake & Output 06/13/24 06/14/24 06/15/24 06/16/24 11:59 11:59 11:59 11:59 Intake Total 583 Output Total 100 Balance 483 - Procedures and Test Procedures and Tests throughout Hospitalization: Therapy Orders & Screens 06/15/24 14:29 Oxygen Nasal Cannula 4 lpm Comment: Diagnosis: abd pain Discharge Exam General Appearance: no apparent distress Neurologic Exam: disoriented, motor weakness, No motor deficits Eye Exam: eyes nml inspection (eyes shut) Ears, Nose, Throat Exam: normal ENT inspection, pharynx normal, moist mucous membranes Neck Exam: normal inspection, non-tender, limited range of motion Respiratory Exam: normal breath sounds, lungs clear, No respiratory distress Cardiovascular Exam: regular rate/rhythm, normal heart sounds Gastrointestinal/Abdomen Exam: soft (no BX x4 quad), No tenderness, No mass Pelvic Exam: deferred Rectal Exam: deferred Back Exam: decreased range of motion, No CVA tenderness, No vertebral tenderness Extremity Exam: normal inspection Skin Exam: warm, dry, mottled (BLLE) Final Diagnosis/Problem List - Final Discharge Diagnosis/Problem (1) Acute kidney injury Current Visit: No Status: Acute Code(s): N17.9 - ACUTE KIDNEY FAILURE, UNSPECIFIED (2) Essential (primary) hypertension Current Visit: No Status: Acute Code(s): I10 - ESSENTIAL (PRIMARY) HYPERTENSION (3) Intestinal perforation Current Visit: No Status: Acute Code(s): K63.1 - PERFORATION OF INTESTINE (NONTRAUMATIC) (4) Metastatic lung cancer (metastasis from lung to other site) Current Visit: No Status: Acute Code(s): C34.90 - MALIGNANT NEOPLASM OF UNSP PART OF UNSP BRONCHUS OR LUNG (5) Hospice care patient Current Visit: Yes Status: Acute Assessment & Plan: (1) Intestinal perforation Current Visit: Yes Status: Acute Assessment & Plan: 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 Admit to hospice 2. Pain control 3. Family does not wish aggressive measures 4. Anti-emetics Code(s): K63.1 - PERFORATION OF INTESTINE (NONTRAUMATIC) (2) Metastatic lung cancer (metastasis from lung to other site) Current Visit: Yes Status: Acute Assessment & Plan: Discussion with family about situation, they would like to pursue comfort reinaldo ures +/- hospice 1. Morphine drip 2. Anti-anxiety meds 3. DNR status Code(s): C34.90 - MALIGNANT NEOPLASM OF UNSP PART OF UNSP BRONCHUS OR LUNG (3) Acute kidney injury Current Visit: Yes Status: Acute Assessment & Plan: Likely some prerenal azotemia with elevated creatinine of 1.2 1. Gentle IVFs 2. Encourage PO intake if able Code(s): N17.9 - ACUTE KIDNEY FAILURE, UNSPECIFIED (4) Essential (primary) hypertension - stop all home meds Current Visit: Yes Status: Acute Code(s): I10 - ESSENTIAL (PRIMARY) HYPERTENSION 5. Hospice care pt - Hospice did visit pt today. - Med orders per hospice - atropine gtts added for secretions Code(s): Z51.5 - ENCOUNTER FOR PALLIATIVE CARE - Discharge Discharge Date: 06/16/24 Disposition: Condition: Stable Prescriptions: No Action Atorvastatin Calcium 80 mg PO DAILY Pantoprazole Sodium [Protonix] 40 mg PO DAILY Levothyroxine Sodium 75 Mcg [Synthroid 75 Mcg] 75 mcg PO DAILY Spironolactone 25 mg [Aldactone 25 MG] 25 mg PO DAILY Lorazepam [Ativan] 1 mg PO DAILY Ezetimibe 10 mg [Zetia 10 MG] 10 mg PO DAILY Clopidogrel Bisulfate [PLAVIX Tablet] 75 mg PO DAILY Aspirin EC 81 mg [Ecotrin 81 mg] 81 mg PO DAILY Cyanocobalamin (Vitamin B-12) [B-12] 3,000 mcg SL UD lisinopriL [Lisinopril] 40 mg PO UD Amlodipine Besylate 10 mg PO UD Vit 28/Iron Fum/Folic [Theranatal Core Nutrition Tab] 1 each PO UD Follow up with: MARLENY TANG MD [Primary Care Provider] -
[2024-06-16] MEDS ORDERED: ATROPINE SULFATE EYE DROPS PO PRN (12:08)
--- NOTE | 2024-06-17 07:30 | PCM.NOTE ---
Date and Time: 06/16/24725 Subjective Assessment: 06/15 Ms. OCHOA is a 88 year old female with a past medical history significant for hypertension, hyperlipdiemia, and recent diagnosis of metastatic lung cancer who was planning to pursue treatment but presented to the ER on 06/15/24 with complaints of abdominal pain. Initial CT abd read as enteritis and she was started on IV antibiotics with plans to transfer to [facility]. Symptoms persisted and CT was read again, this time with the finding of free air. General surgery was consulted and she was deemed too unstable for surgery. Family was informed and have agreed to pursue hospice/comfort. She is resting in bed, lethargic but arousable. She did receive morphine in the ER but does note that it does not last very long and the symptoms have returned. No fever/chills. No chest pain or shortness of breath. No current nausea, vomiting or diarrhea. Pt to pack changer to [facility] hospice. 06/16 Pt under hospice care and plan is to keep IP until she passes. Today she is not in pain. Bp low and RR low as well. She has no BS x4 and legs are mottled. Discussed any further needs at this time with daughter in room. - Review of Systems Additional Findings: pt not responsive Objective Exam General Appearance: no apparent distress Neurologic Exam: other (not awake) Skin Exam: warm, mottled (BLLE) Eye Exam: other (eyes closed) Ears, Nose, Throat Exam: moist mucous membranes Neck Exam: normal inspection Respiratory Exam: normal breath sounds, lungs clear Cardiovascular Exam: regular rate/rhythm, bradycardia Gastrointestinal/Abdomen Exam: soft, other (no BS X4 quad) Extremity Exam: normal inspection Back Exam: decreased range of motion (not awake) Pelvic Exam: deferred Rectal Exam: deferred Objective Data Vital Signs: Vital Signs - 24 hr Temp Pulse Resp BP Pulse Ox 06/17/24 07:20 98.7 F 8 L 68/44 92 L 06/17/24 07:08 5 L 06/17/24 05:34 5 L 06/17/24 03:00 5 L 06/16/24 23:00 9 L 84 L 06/16/24 22:58 9 L 84 L 06/16/24 19:00 50 L 3 L 90 L 06/16/24 18:31 2 L 06/16/24 18:06 5 L 06/16/24 17:00 5 L 06/16/24 15:11 98.5 F 52 L 5 L 70/42 06/16/24 15:00 5 L 06/16/24 14:06 5 L 06/16/24 10:50 98.5 F 58 L 5 L 62/54 06/16/24 10:06 5 L 06/16/24 08:47 90 L 06/16/24 07:40 61 6 L 84 L Pain Assessment - Last Documented Pain Intensity 0 Intake and Output: Intake & Output 06/14/24 06/15/24 06/16/24 06/17/24 11:59 11:59 11:59 11:59 Intake Total 583 1813 Output Total 100 0 Balance 483 1813 Assessment/Plan (1) Acute kidney injury Current Visit: No Status: Acute Code(s): N17.9 - ACUTE KIDNEY FAILURE, UNSPECIFIED (2) Essential (primary) hypertension Current Visit: No Status: Acute Code(s): I10 - ESSENTIAL (PRIMARY) HYPERTENSION (3) Intestinal perforation Current Visit: No Status: Acute Code(s): K63.1 - PERFORATION OF INTESTINE (NONTRAUMATIC) (4) Metastatic lung cancer (metastasis from lung to other site) Current Visit: No Status: Acute Code(s): C34.90 - MALIGNANT NEOPLASM OF UNSP PART OF UNSP BRONCHUS OR LUNG (5) Hospice care patient Current Visit: Yes Status: Acute Assessment & Plan: (1) Intestinal perforation Current Visit: Yes Status: Acute Assessment & Plan: 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 Admit to hospice 2. Pain control 3. Family does not wish aggressive measures 4. Anti-emetics Code(s): K63.1 - PERFORATION OF INTESTINE (NONTRAUMATIC) (2) Metastatic lung cancer (metastasis from lung to other site) Current Visit: Yes Status: Acute Assessment & Plan: Discussion with family about situation, they would like to pursue comfort measures +/- hospice 1. Morphine drip 2. Anti-anxiety meds 3. DNR status Code(s): C34.90 - MALIGNANT NEOPLASM OF UNSP PART OF UNSP BRONCHUS OR LUNG (3) Acute kidney injury Current Visit: Yes Status: Acute Assessment & Plan: Likely some prerenal azotemia with elevated creatinine of 1.2 1. Gentle IVFs 2. Encourage PO intake if able Code(s): N17.9 - ACUTE KIDNEY FAILURE, UNSPECIFIED (4) Essential (primary) hypertension - stop all home meds Current Visit: Yes Status: Acute Code(s): I10 - ESSENTIAL (PRIMARY) HYPERTENSION 5. Hospice care pt - Hospice did visit pt today. - Med orders per hospice - atropine gtts added for secretions Code(s): Z51.5 - ENCOUNTER FOR PALLIATIVE CARE Code(s): Z51.5 - ENCOUNTER FOR PALLIATIVE CARE
[2024-06-17 12:22] VITALS: BP 68/42; PULSE 44
--- NOTE | 2024-06-17 12:46 | PCM.NOTE ---
Date and Time: 06/17/24 1242 Subjective Assessment: 06/15 Ms. OCHOA is a 88 year old female with a past medical history significant for hypertension, hyperlipdiemia, and recent diagnosis of metastatic lung cancer who was planning to pursue treatment but presented to the ER on 06/15/24 with complaints of abdominal pain. Initial CT abd read as enteritis and she was started on IV antibiotics with plans to transfer to [facility]. Symptoms persisted and CT was read again, this time with the finding of free air. General surgery was consulted and she was deemed too unstable for surgery. Family was informed and have agreed to pursue hospice/comfort. She is resting in bed, lethargic but arousable. She did receive morphine in the ER but does note that it does not last very long and the symptoms have returned. No fever/chills. No chest pain or shortness of breath. No current nausea, vomiting or diarrhea. Pt to slubber frame changer to [facility] hospice. 06/16 Pt under hospice care and plan is to keep IP until she passes. Today she is not in pain. Bp low and RR low as well. She has no BS x4 and legs are mottled. Discussed any further needs at this time with daughter in room. 06/17 Pt resting in bed. Resp decreased, oxygen decreased, HR ayleen, no BX x4 and legs are mottled. Pain controlled. Discussed any further needs with daughter in room. Hospice to see pt today. - Review of Systems Constitutional: No Fever, No Chills Eyes: No Symptoms Ears, Nose, & Throat: No Symptoms Respiratory: No Cough, No Short Of Breath Cardiac: No Chest Pain, No Edema, No Syncope Abdominal/Gastrointestinal: No Abdominal Pain, No Nausea, No Vomiting, No Diarrhea Genitourinary Symptoms: No Dysuria Musculoskeletal: No Back Pain, No Neck Pain Skin: No Rash Neurological: No Dizziness, No Focal Weakness, No Sensory Changes Psychological: No Symptoms Endocrine: No Symptoms Hematologic/Lymphatic: No Symptoms Immunological/Allergic: No Symptoms Additional Findings: - pt not responsive Objective Exam General Appearance: no apparent distress Neurologic Exam: other (not wake/ unpresonsive) Skin Exam: pale Eye Exam: other (eyes closed) Neck Exam: normal inspection Respiratory Exam: prolonged expirations Cardiovascular Exam: bradycardia Gastrointestinal/Abdomen Exam: soft, other (no BS x4 quad) Pelvic Exam: deferred Rectal Exam: deferred Objective Data Vital Signs: Vital Signs - 24 hr Temp Pulse Resp BP Pulse Ox 06/17/24 11:08 12 83 L 06/17/24 11:00 98.4 F 44 L 12 68/42 83 L 06/17/24 10:31 5 L 06/17/24 10:06 6 L 06/17/24 07:20 98.7 F 8 L 68/44 92 L 06/17/24 07:08 5 L 06/17/24 05:34 5 L 06/17/24 03:00 5 L 06/16/24 23:00 9 L 84 L 06/16/24 22:58 9 L 84 L 06/16/24 19:00 50 L 3 L 90 L 06/16/24 18:31 2 L 06/16/24 18:06 5 L 06/16/24 17:00 5 L 06/16/24 15:11 98.5 F 52 L 5 L 70/42 06/16/24 15:00 5 L 06/16/24 14:06 5 L Pain Assessment - Last Documented Pain Intensity 0 Intake and Output: Intake & Output 06/15/24 06/16/24 06/17/24 06/18/24 11:59 11:59 11:59 11:59 Intake Total 583 1813 0 Output Total 100 0 Balance 483 1813 0 Assessment/Plan (1) Acute kidney injury Current Visit: No Status: Acute Code(s): N17.9 - ACUTE KIDNEY FAILURE, UNSPECIFIED (2) Essential (primary) hypertension Current Visit: No Status: Acute Code(s): I10 - ESSENTIAL (PRIMARY) HYPERTENSION (3) Intestinal perforation Current Visit: No Status: Acute Code(s): K63.1 - PERFORATION OF INTESTINE (NONTRAUMATIC) (4) Metastatic lung cancer (metastasis from lung to other site) Current Visit: No Status: Acute Code(s): C34.90 - MALIGNANT NEOPLASM OF UNSP PART OF UNSP BRONCHUS OR LUNG (5) Hospice care patient Current Visit: Yes Status: Acute Assessment & Plan: 1) Intestinal perforation Current Visit: Yes Status: Acute Assessment & Plan: 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 Admit to hospice 2. Pain control 3. Family does not wish aggressive measures 4. Anti-emetics Code(s): K63.1 - PERFORATION OF INTESTINE (NONTRAUMATIC) (2) Metastatic lung cancer (metastasis from lung to other site) Current Visit: Yes Status: Acute Assessment & Plan: Discussion with family about situation, they would like to pursue comfort measures +/- hospice 1. Morphine drip 2. Anti-anxiety meds 3. DNR status Code(s): C34.90 - MALIGNANT NEOPLASM OF UNSP PART OF UNSP BRONCHUS OR LUNG (3) Acute kidney injury Current Visit: Yes Status: Acute Assessment & Plan: Likely some prerenal azotemia with elevated creatinine of 1.2 1. Gentle IVFs 2. Encourage PO intake if able Code(s): N17.9 - ACUTE KIDNEY FAILURE, UNSPECIFIED (4) Essential (primary) hypertension - stop all home meds Current Visit: Yes Status: Acute Code(s): I10 - ESSENTIAL (PRIMARY) HYPERTENSION 5. Hospice care pt - Hospice did visit pt today. - Med orders per hospice - atropine gtts added for secretions Code(s): Z51.5 - ENCOUNTER FOR PALLIATIVE CARE Code(s): Z51.5 - ENCOUNTER FOR PALLIATIVE CARE
[2024-06-17] MEDS: VALIUM 10 MG/2 ML SYRINGE IV PRN (13:09)
[2024-06-17] MEDS: Ativan 2 MG/1 ML VIAL IV SCH (14:59)
[2024-06-17 15:12] VITALS: RESP 10; O2SAT 77
[2024-06-17 15:26] VITALS: TEMP 98.5
--- NOTE | 2024-06-17 16:53 | PCM.DS ---
Note Note: Pupils are fixed and dilated bilaterally, non reactive to light and accommodation. No corneal reflex. No spontaneous movements. No spontaneous chest movements. No pulse or heart sounds heard over 1 minute by nurse. No breath sounds on auscultation. All of assessment done by nurse on duty. Date of : 06/17/24 Time of :1550 Patient declared by me at:1551 Cause of : Intestinal perforation, lung cancer with mets The family was at bedside at the time of exam, all the questions were answered appropriately. Family declined autopsy.
--- NOTE | 2024-06-17 16:54 | PCM.DS ---
Discharge Summary Date of Admission: 06/15/24 14:10 Date of Discharge: 06/17/24 Admitting Physician: PARVIZ GONZALEZ MD Primary Care Provider: DO TANGYESH Allergies Allergies Sulfa (Sulfonamide Antibiotics) Allergy (Verified 06/15/24 10:08) unknown Hospital Summary - Hospital Course Hospital Course: 06/15 Ms. OCHOA is a 88 year old female with a past medical history significant for hypertension, hyperlipdiemia, and recent diagnosis of metastatic lung cancer who was planning to pursue treatment but presented to the ER on 06/15/24 with complaints of abdominal pain. Initial CT abd read as enteritis and she was started on IV antibiotics with plans to transfer to [facility]. Symptoms persisted and CT was read again, this time with the finding of free air. General surgery was consulted and she was deemed too unstable for surgery. Family was informed and have agreed to pursue hospice/comfort. She is resting in bed, lethargic but arousable. She did receive morphine in the ER but does note that it does not last very long and the symptoms have returned. No fever/chills. No chest pain or shortness of breath. No current nausea, vomiting or diarrhea. Pt to change manager to [facility] hospice. 06/16 Pt under hospice care and plan is to keep IP until she passes. Today she is not in pain. Bp low and RR low as well. She has no BS x4 and legs are mottled. Discussed any further needs at this time with daughter in room. 06/17 Pt resting in bed. Resp decreased, oxygen decreased, HR ayleen, no BX x4 and legs are mottled. Pain controlled. Discussed any further needs with daughter in room. Hospice to see pt today. Pt at 1550. See note for further information. - Vitals & Intake/Output Vital Signs: Vital Signs Temperature 98.5 F 06/17/24 15:00 Pulse Rate 44 L 06/17/24 11:00 Respiratory Rate 10 L 06/17/24 15:11 Blood Pressure 68/42 06/17/24 11:00 O2 Sat by Pulse Oximetry 77 L 06/17/24 15:11 Intake & Output: Intake & Output 06/15/24 06/16/24 06/17/24 06/18/24 11:59 11:59 11:59 11:59 Intake Total 583 1813 0 Output Total 100 0 Balance 483 1813 0 - Procedures and Test Procedures and Tests throughout Hospitalization: Therapy Orders & Screens 06/15/24 14:29 Oxygen Nasal Cannula 4 lpm Comment: Diagnosis: abd pain Discharge Exam Comments: 06/17/24 16:54 Pt Final Diagnosis/Problem List - Final Discharge Diagnosis/Problem (1) Acute kidney injury Current Visit: No Status: Acute Code(s): N17.9 - ACUTE KIDNEY FAILURE, UNSPECIFIED (2) Essential (primary) hypertension Current Visit: No Status: Acute Code(s): I10 - ESSENTIAL (PRIMARY) HYPERTENSION (3) Intestinal perforation Current Visit: No Status: Acute Code(s): K63.1 - PERFORATION OF INTESTINE (NONTRAUMATIC) (4) Metastatic lung cancer (metastasis from lung to other site) Current Visit: No Status: Acute Code(s): C34.90 - MALIGNANT NEOPLASM OF UNSP PART OF UNSP BRONCHUS OR LUNG (5) Hospice care patient Current Visit: Yes Status: Acute Assessment & Plan: 1) Intestinal perforation Current Visit: Yes Status: Acute Assessment & Plan: 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 Admit to hospice 2. Pain control 3. Family does not wish aggressive measures 4. Anti-emetics Code(s): K63.1 - PERFORATION OF INTESTINE (NONTRAUMATIC) (2) Metastatic lung cancer (metastasis from lung to other site) Current Visit: Yes Status: Acute Assessment & Plan: Discussion with family about situation, they would like to pursue comfort measures +/- hospice 1. Morphine drip 2. Anti-anxiety meds 3. DNR status Code(s): C34.90 - MALIGNANT NEOPLASM OF UNSP PART OF UNSP BRONCHUS OR LUNG (3) Acute kidney injury Current Visit: Yes Status: Acute Assessment & Plan: Likely some prerenal azotemia with elevated creatinine of 1.2 1. Gentle IVFs 2. Encourage PO intake if able Code(s): N17.9 - ACUTE KIDNEY FAILURE, UNSPECIFIED (4) Essential (primary) hypertension - stop all home meds Current Visit: Yes Status: Acute Code(s): I10 - ESSENTIAL (PRIMARY) HYPERTENSION 5. Hospice care pt - Hospice did visit pt today. - Med orders per hospice - atropine gtts added for secretions Code(s): Z51.5 - ENCOUNTER FOR PALLIATIVE CARE Code(s): Z51.5 - ENCOUNTER FOR PALLIATIVE CARE - Discharge Discharge Date: 06/17/24 Disposition: Condition: Stable Prescriptions: No Action Atorvastatin Calcium 80 mg PO DAILY Pantoprazole Sodium [Protonix] 40 mg PO DAILY Levothyroxine Sodium 75 Mcg [Synthroid 75 Mcg] 75 mcg PO DAILY Spironolactone 25 mg [Aldactone 25 MG] 25 mg PO DAILY Lorazepam [Ativan] 1 mg PO DAILY Ezetimibe 10 mg [Zetia 10 MG] 10 mg PO DAILY Clopidogrel Bisulfate [PLAVIX Tablet] 75 mg PO DAILY Aspirin EC 81 mg [Ecotrin 81 mg] 81 mg PO DAILY Cyanocobalamin (Vitamin B-12) [B-12] 3,000 mcg SL UD lisinopriL [Lisinopril] 40 mg PO UD Amlodipine Besylate 10 mg PO UD Vit 28/Iron Fum/Folic [Theranatal Core Nutrition Tab] 1 each PO UD Follow up with: MARLENY TANG MD [Primary Care Provider] -
== END 2024-06-17 18:18 | disposition expired | DRG 682 ==
LOC: MED SURG 14:10
PROVIDERS: ADMIT Internal Medicine; ATTEND Internal Medicine
DX: N17.9 Acute kidney failure, unspecified (principal); K63.1 Perforation of intestine (nontraumatic); C34.90 Malignant neoplasm of unspecified part of unspecified bronchus or lung; I10 Essential (primary) hypertension; E78.5 Hyperlipidemia, unspecified; I25.10 Atherosclerotic heart disease of native coronary artery without angina pectoris; Z51.5 Encounter for palliative care; Z79.899 Other long term (current) drug therapy; Z79.01 Long term (current) use of anticoagulants
CPT/HCPCS: 94760; J2060; J2270; J3360; A9270-GY